=== PATIENT | male | born 1940 | race Caucasian/White ===

== ENCOUNTER → 2020-11-09 09:29 | Outpatient (CLI) | payer MEDICARE, MEDICAID, SELFPAY ==
--- NOTE | 2020-11-09 09:31 | CA_ITS ---
APPROVED REPORT Left Lower Extremity Venous Study for DVT. 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 Other deep veins of the left lower extremity are normal. Conclusion Study suggests DVT of the left femoral vein, popliteal vein and gastrocnemius vein of the left lower extremity. Other deep veins of the left lower extremity are normal. Critical Notification Physician Notified Date: 11/09/2020 Time: 10:07 Physician Name: Dr Jordan Electronically signed by : Elvis Vidal MD 11/09/2020 18:00:07
[2020-11-09 14:04] LABS: Blood Urea Nitrogen 10 mg/dl (9-20); Carbon Dioxide 30 mmol/L (22.0-30.0); Chloride 106 mmol/L (98-107); Estimated Glomerular Filt Rate 131 ml/min (>60); GFR (African American) 158 ML/MIN (>60); Glucose 95 mg/dl (74-100); Sodium 140 mmol/L (136-145)
== END ==
PROVIDERS: PCP Emergency Medicine; Visit Provider Emergency Medicine
DX: M79.89 Other specified soft tissue disorders (principal); I10 Essential (primary) hypertension; M79.662 Pain in left lower leg; Z87.891 Personal history of nicotine dependence
CPT/HCPCS: 80048; 93971

== ENCOUNTER → 2020-11-09 13:52 | Outpatient (CLI) | payer MEDICARE, MEDICAID, SELFPAY | PROVIDERS: Visit Provider Emergency Medicine | DX: I10 Essential (primary) hypertension (principal) | CPT/HCPCS: 80048 ==

== ENCOUNTER 2021-06-17 11:53 | Emergency (ER) | payer MEDICARE, MEDICAID, SELFPAY ==
[2021-06-17 12:00] VITALS: BP 129/76; PULSE 90; RESP 18; TEMP 36.8; O2SAT 98; BMI 22.8
--- NOTE | 2021-06-17 12:19 | HMH.EDUTC ---
[facility] [place] Disposition Clinical Impression: Acute bronchitis Qualifiers: Bronchitis organism: unspecified organism Qualified Code(s): J20.9 - Acute bronchitis, unspecified Sinusitis Qualifiers: Sinusitis location: unspecified location Chronicity: acute Recurrence: non-recurrent Qualified Code(s): J01.90 - Acute sinusitis, unspecified Disposition: Home, Self-Care Condition on Discharge: Good Instructions: DI for Sinusitis, DI for Acute Bronchitis Additional Instructions: Drink plenty of fluids. Take tylenol or ibuprofen for pain or fever. Take the medications as directed. Follow up with your regular doctor. GO TO THE ER FOR ANY WORSENING SYMPTOMS Don't start the oral steroids until tomorrow, since you had the shot here today. Prescriptions: Amoxicillin/Potassium Clav [Amox-Clav 875-125 mg Tablet] 1 tab PO BID #20 tab [facility] Benzonatate [Benzonatate 100mg cap] 100 mg PO TIDP PRN #30 cap PRN Reason: Cough Transmission Status: Received by [facility] methylPREDNISolone [Medrol] 4 mg PO DIRECTED 6 Days #21 packet Transmission Status: Received by [facility] guaiFENesin [Mucinex 600mg tablet] 1 - 2 tab PO BIDP PRN #30 tab PRN Reason: Congestion Transmission Status: Received by [facility] Referrals: Grupo Jordan MD [Primary Care Provider] - Time of Disposition: 13:12 Medical Decision Making - Medical Records Medical records reviewed: No: I reviewed the patient's medical records. - Jose Inquiry Pt receiving controlled substance: No Vital Signs: 06/17/21 12:00 06/17/21 12:49 Temperature 98.3 F 98.3 F Temperature Source Oral Pulse Rate 90 Pulse Rate [Right Brachial] 90 Respiratory Rate 18 18 Blood Pressure 129/76 Blood Pressure [Right Arm] 129/76 Blood Pressure Mean [Right Arm] 93 Blood Pressure Source [Right Arm] Automatic Cuff Blood Pressure Position [Right Arm] Sitting 02 Sat by Pulse Oximetry 98 Oxygen Delivery Method Room Air - Lab Data Lab results reviewed: Yes: I reviewed the patient's lab results. Orders (Tests/Meds): ED MEDICATIONS Discontinued Medications Generic Name Dose Route Start Last Admin Trade Name Freq PRN Reason Stop Dose Admin Ceftriaxone Sodium 1 gm 06/17/21 12:22 06/17/21 12:45 Ceftriaxone 1gm Vial IM 06/17/21 12:23 1 gm ONCE ONE Administration Lidocaine HCl 0 ml 06/17/21 12:22 06/17/21 12:45 Lidocaine 1% 5ml Pf Vial IM 06/17/21 12:23 2 ml ONCE ONE Administration Methylprednisolone Sodium Succinate 125 mg 06/17/21 12:22 06/17/21 12:45 Methylprednisolone Sod Succ 125mg Vial IM 06/17/21 12:23 125 mg ONCE ONE Administration [facility] [place] HPI - General Stated complaint: congestion, cough, runny nose Time Seen by Provider: 06/17/21 12:25 - History of Present Illness Provider Complaint: He states that he has had sinus congestion, sore throat, chills and feeling bad. - Related Data Previous Rx's Medication Instructions Recorded rivaroxaban 15 mg tablet 15 mg PO BID 21 Days #42 tab 11/09/20 lisinopril 20 mg tablet See Rx Instructions .ROUTE 02/07/21 .COMPLEX #90 tab rivaroxaban 20 mg tablet 20 mg PO DAILY #30 tab 02/07/21 Amoxicillin/Potassium Clav 1 tab PO BID #20 tab 06/17/21 [Amox-Clav 875-125 mg Tablet] Benzonatate [Benzonatate 100mg 100 mg PO TIDP PRN #30 cap 06/17/21 cap] guaiFENesin [Mucinex 600mg tablet] 1 - 2 tab PO BIDP PRN #30 tab 06/17/21 methylPREDNISolone [Medrol] 4 mg PO DIRECTED 6 Days #21 06/17/21 packet Allergies Allergy/AdvReac Type Severity Reaction Status Date / Time No Known Allergies Allergy Verified 11/23/20 09:44 [facility] History - Hepatitis A Screen Attestation statement:: This patient has been screened for Hepatitis A risk factors. I have reviewed the patient's past medical history: Yes Medical History: Reports:: Deep Vein Thrombosis, Hypertension Othe
[2021-06-17 12:49] VITALS: BP 129/76; PULSE 90; RESP 18; TEMP 36.8; O2SAT 98
== END 2021-06-17 13:15 | disposition home or self-care (01) ==
PROVIDERS: Emergency Provider Nurse Practitioner Family; PCP Emergency Medicine
DX: J20.9 Acute bronchitis, unspecified (principal); J01.90 Acute sinusitis, unspecified; I10 Essential (primary) hypertension; M19.90 Unspecified osteoarthritis, unspecified site; Z79.52 Long term (current) use of systemic steroids; Z86.718 Personal history of other venous thrombosis and embolism; Z96.641 Presence of right artificial hip joint; Z87.891 Personal history of nicotine dependence; Z82.49 Family history of ischemic heart disease and other diseases of the circulatory system; Z83.438 Family history of other disorder of lipoprotein metabolism and other lipidemia; Z80.9 Family history of malignant neoplasm, unspecified; Z83.3 Family history of diabetes mellitus
CPT/HCPCS: 96372; 99213; G0463; J0696

== ENCOUNTER 2023-08-11 17:07 | Emergency (ER) | payer MEDICARE, MEDICAID, SELFPAY ==
[2023-08-11 17:10] VITALS: BP 186/97; PULSE 85; RESP 18; TEMP 36.5; O2SAT 97; BMI 22.9
--- NOTE | 2023-08-11 17:24 | CT_ITS ---
PROCEDURE INFORMATION: Exam: CT Abdomen And Pelvis With Contrast Exam date and time: 08/11/2023 6:29 PM Age: 82 years old Clinical indication: Abdominal pain; Periumbilical; Additional info: Luq, periumbilical pain TECHNIQUE: Imaging protocol: Computed tomography of the abdomen and pelvis with contrast. Radiation optimization: All CT scans at this facility use at least one of these dose optimization techniques: automated exposure control; mA and/or kV adjustment per patient size (includes targeted exams where dose is matched to clinical indication); or iterative reconstruction. Contrast material: ISOVUE; Contrast volume: 75 ml; Contrast route: IV; COMPARISON: No relevant prior studies available. FINDINGS: Lungs: Scattered areas of bronchial wall thickening which are likely chronic inflammatory. A few areas of subpleural reticulation are noted, nonspecific. Liver: Normal. Gallbladder and biliary ducts: There is cholelithiasis within an otherwise normal gallbladder. Pancreas: There is some calcification associated with the pancreatic neck which could reflect chronic pancreatitis. Mild peripancreatic stranding is noted and correlation with lipase level for any concern of acute on chronic pancreatitis is suggested. Spleen: Normal. Adrenal glands: The adrenal glands appear normal. Kidneys and ureters: 4.5 cm fat containing exophytic mass emanating from the left most consistent with an angiomyolipoma (image 55 series 3). 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 Exophytic left mid to lower pole renal cysts appear simple. Nonobstructing left lower pole renal calculus. Stomach and bowel: There are scattered colonic diverticula without evidence for active diverticulitis. There are scattered colonic diverticula without evidence for active diverticulitis. Appendix: No evidence of appendicitis. Intraperitoneal space: Unremarkable. Vasculature: There is atherosclerotic disease of the visualized aorta and its major branch vessels. Lymph nodes: No lymphadenopathy. Urinary bladder: There is a calcification in the dependent urinary bladder which could reflect a recently passed stone. Reproductive: The prostate is enlarged. Bones/joints: There is diffuse degenerative disease of the visualized osseous structures. 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 Postsurgical changes of the right acetabulum. There is slight anterolisthesis of L5 on S1. There is a chronic compression deformity of L1. Soft tissues: There is a fat containing left inguinal hernia. IMPRESSION: 1. 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 2. There is a calcification in the dependent urinary bladder which could reflect a recently passed stone. 3. Mild peripancreatic stranding is noted and correlation with lipase level for any concern of acute on chronic pancreatitis is suggested. COMMENTS: Consistent with the [employer]'s Incidental Findings Committee white paper (J Am Rubén Radiol 2018): Any incidental renal lesion less than 1 cm or classified as too small to characterize, or any incidental cystic renal lesion characterized as simple-appearing, is likely benign. No follow-up imaging is recommended for these lesions per consensus recommendations based on imaging criteria.
--- NOTE | 2023-08-11 17:24 | ECG_ITS ---
APPROVED REPORT Exam: Resting ECG HR:84 bpm ECG Measurements Heart Rate 84 AXES WY 165 P 55 QRSd 80 QRS 52 QT 339 T 46 QTc 380 Conclusion SINUS RHYTHM NORMAL ECG Electronically signed by : JANETT SAM, 08/11/2023 23:19:17
--- NOTE | 2023-08-11 17:25 | ED_ITS ---
Discharge Plan Disposition Patient Disposition: Home, Self-Care Prescriptions Prescriptions: New ondansetron 4 mg tablet,disintegrating 4 mg PO Q8H PRN (Reason: nausea and vomiting) 4 Days Qty: 12 0RF No Action lisinopril 20 mg tablet See Rx Instructions .ROUTE .COMPLEX Qty: 90 2RF Dose Instruction: Take 1 tablet by mouth once daily Rx Instructions: Take 1 tablet by mouth once daily Referrals Follow up/Referrals: Prabhjot Young, [Primary Care Provider] - See instructions Activity Restrictions/Add. Instructions Additional Instructions/Restrictions: At this time it was felt you are safe to be discharged home. If new or worsening symptoms please do not hesitate to return the emergency department. As discussed today you have pancreatitis, please slowly advance your diet from clear liquids to broth to solids over the next few days and avoid heavily fatty foods. You also have a stone in your bladder which you already know about however I recommend you call and make an appointment with Dr. Silvestre as soon as you are able. Follow-up with your family doctor or Dr. Silvestre as soon as you are able for referral to appropriate doctor for continued workup of your left- sided kidney mass. You have been prescribed Zofran for nausea. Clinical Impressions Clinical Impression: Acute pancreatitis, Kidney mass, Bladder calculi Instructions Patient Instructions: DI for Acute Abdominal Pain Discharge ED Provider: Gilbert Silva General Adult HPI General Chief complaint: Abdominal Pain Stated complaint: Upper Abdominal pain,poor appetite Time Seen by Provider: 08/11/23 17:14 Mode of Arrival: Ambulatory Source of Information: Patient and Relative Limitations: No Limitations Description of Symptoms (Recalled from ER Triage Doc. by RN): abdominal pain History of Present Illness HPI narrative: Patient is a 82-year-old male with past medical history of hypertension, largely healthy otherwise, previous right inguinal hernia status post mesh who presents emergency department for evaluation of abdominal pain. Onset was acute, occurring since Sunday, periumbilical and left upper quadrant, described as twisting, is paroxysmal. Currently his pain is not so bad . However it has been severe and intermittent. Last bowel movement was small prior to arrival, still able to void. No chest pain. No other acute complaints at this time. Related Data Previous Rx's Medication Instructions Recorded lisinopril 20 mg tablet See Rx Instructions .Route 05/14/23 .COMPLEX #90 tabs ondansetron 4 mg disintegrating 4 mg PO Q8H PRN nausea and 08/11/23 tablet vomiting 4 days #12 tabs Allergies Allergy/AdvReac Type Severity Reaction Status Date / Time No Known Allergies Allergy Verified 05/31/22 14:08 [facility] Disclaimer: The information contained in this section may have been updated after the patient was seen, as this information can be updated by other users. Social History Smoking Status: Never smoker alcohol intake: never substance use type: denies use current occupational status: other Travel in the last 8 weeks: None household members: spouse housing: house ROS Obtained: Yes Systems reviewed as appropriate & no additional complaints except as documented Physical Exam General General appearance: alert and in no apparent distress Head Head exam: atraumatic and normocephalic Eye Eye exam: Present PERRL and EOMI ENT ENT exam: Present mucous membranes moist Neck Neck exam: Present normal inspection Chest Chest inspection: Present normal inspection and symmetric chest wall rise Respiratory Respiratory exam: Present normal lung sounds bilaterally; Absent respiratory distress Cardiovascular Cardiovascular exam: Present regular rate and normal rhythm Abdominal Exam Abdominal exam: Present soft, distention (Mild) and tenderness (Periumbilical, left upper quadrant); Absent guarding Extremities Exam Extremities exam: Present normal inspection Neurological Exam Neurological exam: Present alert Psychiatric Psychiatric exam: Present normal affect Skin Skin exam: Present warm and dry Medical Decision Making Jose Inquiry Pt receiving controlled substance: No Vital Signs: 08/11/23 17:10 08/11/23 17:30 08/11/23 17:45 Temperature 97.7 F Temperature Source Oral Pulse Rate 83 75 Pulse Rate [Right] 85 Respiratory Rate 18 Blood Pressure 179/84 H 169/88 H Blood Pressure [Right Arm] 186/97 H Blood Pressure Mean [Right Arm] 126 02 Sat by Pulse Oximetry 97 98 98 Oxygen Delivery Method Room Air 08/11/23 18:00 08/11/23 18:15 Temperature Temperature Source Pulse Rate 85 75 Pulse Rate [Right] Respiratory Rate Blood Pressure 172/88 H 180/82 H Blood Pressure [Right Arm] Blood Pressure Mean [Right Arm] 02 Sat by Pulse Oximetry 97 95 Oxygen Delivery Method Room Air Room Air Lab Data Lab Results 08/11/23 17:28: WBC 10.4, RBC 4.89, Hgb 15.3, Hct 47.0, MCV 96.3 H, MCH 31.3 H, MCHC 32.5, RDW 14.4, Plt Count 267, MPV 8.9, Neut % (Auto) 72.0, Lymph % (Auto) 16.5, Giles % (Auto) 5.5, Eos % (Auto) 4.9, Baso % (Auto) 1.2, Neut # (Auto) 7.5, Lymph # (Auto) 1.7, Giles # (Auto) 0.6, Eos # (Auto) 0.5 H, Baso # (Auto) 0.1, Sodium 139, Potassium 4.0, Chloride 105, Carbon Dioxide 29, Anion Gap 9.0, BUN 14, Creatinine 0.80, Estimated Creat Clear 66, Estimated GFR 93, Est GFR ( Amer) 113, Glucose 136 H, Calcium 9.3, Total Bilirubin 0.8, AST 31, ALT 24, Alkaline Phosphatase 146 H, Troponin I < 0.01, Total Protein 7.3, Albumin 3.9, Globulin 3.4 H, Albumin/Globulin Ratio 1.1, Lipase 1059 H, Urine Color Dark yellow, Urine Appearance Slightly cloudy, Urine pH 6.0, Ur Specific Crystal >= 1.030, Urine Protein Trace, Urine Glucose (UA) Trace, Urine Ketones Negative, Urine Blood Negative, Urine Nitrate Negative, Urine Bilirubin Negative, Urine Urobilinogen 1.0, Ur Leukocyte Esterase Negative, Urine RBC Occasional, Urine WBC 5-10, Urine Bacteria 1+ 08/11/23 17:28 08/11/23 17:28 Orders (Tests/Meds): ED MEDICATIONS Generic Name Dose Route Start Last Admin Trade Name Freq PRN Reason Stop Dose Admin Sodium Chloride 10 ml 08/11/23 18:28 08/11/23 18:29 Sodium Chloride 0.9% 10ml Syr (Rad Only) IV 09/10/23 18:27 10 ml NEEDED PRN Administration Maintain IV Site Discontinued Medications Generic Name Dose Route Start Last Admin Trade Name Freq PRN Reason Stop Dose Admin Acetaminophen 1,000 mg 08/11/23 17:24 08/11/23 17:42 Acetaminophen 1,000mg/100ml Vial IV 08/11/23 17:25 1,000 mg ONCE ONE Administration Lactated Ringer's 1,000 mls @ 999 mls/hr 08/11/23 17:24 08/11/23 17:42 Lactated Ringer's 1000 Ml Bag IV 08/11/23 18:24 999 mls/hr .Q1H1M ONE Administration Iopamidol 75 ml 08/11/23 18:28 08/11/23 18:29 Iopamidol-370 (76%);100ml Bottle IV 08/11/23 18:29 75 ml ONCE ONE Administration Ketorolac Tromethamine 30 mg 08/11/23 17:24 08/11/23 17:42 Ketorolac 30mg/Ml Vial IV 08/11/23 17:25 30 mg ONCE ONE Administration Ondansetron HCl 4 mg 08/11/23 17:24 08/11/23 17:42 Ondansetron 4mg/2ml Vial IV 08/11/23 17:25 4 mg ONCE ONE Administration ORDERS Category Date Time Status CT abdomen pelvis w con Stat Cat Scan 08/11/23 17:24 Completed CBC w/Auto Diff [Complete Blood Count Auto Diff] Stat Lab 08/11/23 17:28 Completed CMP [Comprehensive Metabolic Panel] Stat Lab 08/11/23 17:28 Completed Lipase Stat Lab 08/11/23 17:28 Completed Trop I [Troponin I] Stat Lab 08/11/23 17:28 Completed Troponin I Q3H Lab 08/11/23 20:30 Ordered Troponin I Q3H Lab 08/11/23 23:30 Ordered UA [Urinalysis and Microscopic] Stat Lab 08/11/23 17:28 Completed EKG Request [ECG Request] Stat Y 08/11/23 17:24 Ordered ECG Data Tracing #1: Independently interpreted by me rate is 84, rhythm is regular, axis is normal, no ST elevation in anatomical contiguous leads, QTc 380. HEART Score History (anamnesis): Slightly suspicious ECG: Normal Age: >65 years Risk factors: 1-2 risk factors Troponin: </= normal limit HEART Score: 3 Medical Decision Narrative: In summary patient is an 82-year-old male with past medical history described above who presents emergency department for evaluation of abdominal pain. Patient is hemodynamically stable nontoxic-appearing upon arrival, afebrile. Differential diagnosis includes incomplete bowel obstruction, mass, atypical ACS, among others. Workup will be conducted with hematologic labs, urinalysis, CT abdomen pelvis with IV contrast, single troponin, EKG. Initial interventions include crystalloid bolus, Toradol, Tylenol, Zofran. Initial workup reviewed by me, hematologic labs are remarkable for elevated lipase 1059, initial troponin undetectably low, no ERLINDA or critical electrolyte abnormality. Urinalysis interpreted by me not consistent with infection. CT imaging remarkable for 4.5 cm fat-containing exophytic mass from the left kidney consistent with angiomyolipoma, calcification in the urinary bladder which could reflect a recently passed stone, mild peripancreatic stranding which in this clinical setting is consistent with pancreatitis. Prolonged discussion was had at bedside, patient prefers to proceed with outpatient management although admission was recommended. Shared decision-making discussion was had, it is not unreasonable to do this given that he was tolerating p.o. at bedside, has no elevated AST or ALT, no elevated bilirubin to suggest suspect choledocholithiasis or gallstone pancreatitis. The findings in his bladder he states that he has had a stone there for some time and has been asymptomatic. He was encouraged to follow-up on an outpatient basis for this. He will also follow-up for his new mass on his left kidney and verbalized understanding. He was given multiple return precautions. Critical Care Critical Care Time Critical Care Time: No
[2023-08-11 17:30] VITALS: BP 179/84; PULSE 83; O2SAT 98
[2023-08-11 17:31] LABS: Microscopic, Urine URINE MICROSCOPIC (MICROSCOPIC)
[2023-08-11 17:33] LABS: Basophils # 0.1 K/mm3 (0-0.2); Basophils % 1.2 % (0.1-2.0); Bilirubin,Urine Negative (Negative); Blood, Urine Negative (Negative); Eosinophils # 0.5 K/mm3 (0.0-0.4); Eosinophils % 4.9 % (0.1-12.0); Glucose,Urine (UA) TRACE (Negative); Hemoglobin 15.3 g/dL (14.1-18.0); Ketones,Urine Negative (Negative); Leukocyte Esterase,Urine Negative (Negative); Lymphocytes # 1.7 K/mm3 (0.7-4.5); Lymphocytes % 16.5 % (10-50); Mean Corpuscular HGB Conc 32.5 g/dL (31.8-35.4); Mean Corpuscular Hemoglobin 31.3 pg (27.0-31.2); Mean Corpuscular Volume 96.3 fl (80-94); Mean Platelet Volume 8.9 fl (7.4-10.4); Monocytes # 0.6 K/mm3 (0.1-1.0); Monocytes % 5.5 % (1.7-9.3); Neutrophils # 7.5 K/mm3 (1.8-7.8); Nitrate,Urine Negative (Negative); Platelet Count 267 K/mm3 (142-424); Protein,Urine TRACE (Negative); Red Blood Count 4.89 M/mm3 (4.60-6.20); Red Cell Distribution Width 14.4 % (11.5-17.5); Specific Gravity, Urine >= 1.030 (1.005-1.030); White Blood Count 10.4 K/mm3 (4.8-10.8)
[2023-08-11] MEDS: ACETAMINOPHEN 1,000MG/100ML VIAL 1000 MG IV (17:42)
[2023-08-11] MEDS: ONDANSETRON 4MG/2ML VIAL 4 MG IV (17:42)
[2023-08-11] MEDS: KETOROLAC 30MG/ML VIAL 30 MG IV (17:42)
[2023-08-11] MEDS: LACTATED RINGERS 1000ML 1,000 ML 999 ML IV (17:42)
[2023-08-11 17:45] VITALS: BP 169/88; PULSE 75; O2SAT 98
[2023-08-11 17:47] LABS: Appearance,Urine Slightly Cloudy (Clear); Color,Urine Dark Yellow (Yellow); RBC,Urine Occasional #/hpf (0-3)
[2023-08-11 17:48] LABS: Bacteria,Urine 1+ /lpf; Chloride 105 mmol/L (98-107); Sodium 139 mmol/L (136-145)
[2023-08-11 17:50] LABS: Blood Urea Nitrogen 14 mg/dl (9-20)
[2023-08-11 17:51] LABS: Alanine Aminotransferase 24 U/L (12-78); Albumin Level 3.9 g/dl (3.5-5.0); Albumin/Globulin Ratio 1.1 (1.1-1.8); Alkaline Phosphatase 146 U/L (38-126); Aspartate Amino Transferase 31 U/L (17-59); Bilirubin,Total 0.8 mg/dl (0.2-1.3); Calcium 9.3 mg/dl (8.4-10.2); Carbon Dioxide 29 mmol/L (22.0-30.0); Creatinine Clearance Estimated 66 mL/min (50-200); Estimated Glomerular Filt Rate 93 ml/min (>60); GFR (African American) 113 ML/MIN (>60); Globulin 3.4 g/dL (1.3-3.2); Glucose 136 mg/dl (74-100); Total Protein,Serum 7.3 g/dl (6.3-8.2)
--- NOTE | 2023-08-11 17:55 | PC.NURSE ---
lipase 1059, aware
[2023-08-11 17:56] LABS: Lipase 1059 U/L (23-300)
[2023-08-11 18:00] VITALS: BP 172/88; PULSE 85; O2SAT 97
[2023-08-11 18:07] LABS: Troponin I < 0.01 ng/ml (0.00-0.034)
[2023-08-11 18:15] VITALS: BP 180/82; PULSE 75; O2SAT 95
[2023-08-11] MEDS: IOPAMIDOL-370 (76%);100ML BOTTLE 75 ML IV (18:29)
[2023-08-11] MEDS: SODIUM CHLORIDE 0.9% 10ML SYR (RAD ONLY) 10 ML IV (18:29)
--- NOTE | 2023-08-11 18:29 | PC.NURSE ---
pt is at ct
[2023-08-11 20:40] VITALS: BP 174/92; PULSE 94; RESP 16; TEMP 36.6; O2SAT 94
== END 2023-08-11 20:44 | disposition home or self-care (01) ==
PROVIDERS: Emergency Provider Emergency Medicine; PCP Internal Medicine
DX: R10.12 Left upper quadrant pain (principal); R10.33 Periumbilical pain; K85.90 Acute pancreatitis without necrosis or infection, unspecified; N21.0 Calculus in bladder; N28.89 Other specified disorders of kidney and ureter
CPT/HCPCS: 74177; 80053; 81001; 83690; 84484; 85025; 93005; 96361; 96374; 96375; 99285; J0131; J1885; J2405; J7120; Q9967

== ENCOUNTER 2023-08-12 19:40 | Emergency (ER) | payer MEDICARE, MEDICAID, SELFPAY ==
[2023-08-12 19:41] VITALS: BP 194/97; PULSE 97; RESP 18; TEMP 36.7; O2SAT 98; BMI 23.5
[2023-08-12] MEDS: ACETAMINOPHEN 1,000MG/100ML VIAL 1000 MG IV (20:37)
[2023-08-12] MEDS: MORPHINE 4MG/ML SYRINGE 4 MG IV (20:37)
[2023-08-12] MEDS: LACTATED RINGERS 1000ML 1,000 ML 999 ML IV (20:37)
[2023-08-12 20:42] LABS: Basophils # 0.1 K/mm3 (0-0.2); Basophils % 1.1 % (0.1-2.0); Eosinophils # 0.5 K/mm3 (0.0-0.4); Eosinophils % 5.5 % (0.1-12.0); Hematocrit 45.7 % (42.0-52.0); Hemoglobin 14.6 g/dL (14.1-18.0); Lymphocytes # 1.3 K/mm3 (0.7-4.5); Lymphocytes % 13.2 % (10-50); Mean Corpuscular Hemoglobin 30.9 pg (27.0-31.2); Mean Corpuscular Volume 96.7 fl (80-94); Mean Platelet Volume 8.9 fl (7.4-10.4); Monocytes # 0.6 K/mm3 (0.1-1.0); Monocytes % 5.7 % (1.7-9.3); Neutrophils # 7.3 K/mm3 (1.8-7.8); Neutrophils % 74.6 % (37.0-80.0); Platelet Count 219 K/mm3 (142-424); Red Blood Count 4.72 M/mm3 (4.60-6.20); Red Cell Distribution Width 14.3 % (11.5-17.5); White Blood Count 9.7 K/mm3 (4.8-10.8)
--- NOTE | 2023-08-12 20:47 | ED_ITS ---
Discharge Plan Disposition Patient Disposition: Xfer Short-Term Hosp Prescriptions Prescriptions: No Action lisinopril 20 mg tablet See Rx Instructions .ROUTE .COMPLEX Qty: 90 2RF Dose Instruction: Take 1 tablet by mouth once daily Rx Instructions: Take 1 tablet by mouth once daily ondansetron 4 mg tablet,disintegrating 4 mg PO Q8H PRN (Reason: nausea and vomiting) 4 Days Qty: 12 0RF Referrals Follow up/Referrals: Prabhjot Young DO [Primary Care Provider] - See instructions Clinical Impressions Clinical Impression: Acute pancreatitis, Lung mass, Kidney mass Instructions Patient Instructions: DI for Acute Abdominal Pain Discharge ED Provider: Gilbert Silva General Adult HPI <Gilbert Silva MD - Last Filed: 08/12/23 22:53> General Chief complaint: Abdominal Pain Stated complaint: abdominal pain Time Seen by Provider: 08/12/23 20:14 Mode of Arrival: Wheelchair Source of Information: Patient Limitations: No Limitations Description of Symptoms (Recalled from ER Triage Doc. by RN): Pt seen yesterday with abdominal pain, decreased appetite. Pt was dx with pancreatitis, denied admission. Tonight after dinner he had increased abdominal pain. LBM Sunday History of Present Illness HPI narrative: Patient is a 82-year-old male with past medical history of hypertension largely healthy otherwise who I saw yesterday in the emergency department for evaluation of upper abdominal pain. 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 Shared decision-making discussion was had at bedside and patient really preferred to go home and he was discharged at that time with multiple return precautions and verbalized understanding. Today he has had persistent epigastric pain which is not tolerable to him at home so he represents for continued evaluation. Workup yesterday reviewed by me, hematologic labs remarkable for lipase of 1059, no significant leukocytosis. CT imaging of the findings described above. No chest pain reported. Last bowel movement Sunday nonbloody, still passing flatus. Related Data Previous Rx's Medication Instructions Recorded lisinopril 20 mg tablet See Rx Instructions .Route 05/14/23 .COMPLEX #90 tabs ondansetron 4 mg disintegrating 4 mg PO Q8H PRN nausea and 08/11/23 tablet vomiting 4 days #12 tabs Allergies Allergy/AdvReac Type Severity Reaction Status Date / Time No Known Allergies Allergy Verified 05/31/22 14:08 PFSH <Gilbert Silva MD - Last Filed: 08/12/23 22:53> [facility] Disclaimer: The information contained in this section may have been updated after the patient was seen, as this information can be updated by other users. Social History Smoking Status: Never smoker alcohol intake: never substance use type: denies use current occupational status: other Travel in the last 8 weeks: None household members: spouse housing: house <Gilbert Silva MD - Last Filed: 08/12/23 22:53> ROS Obtained: Yes Systems reviewed as appropriate & no additional complaints except as documented Physical Exam <Gilbert Silva MD - Last Filed: 08/12/23 22:53> General General appearance: alert and in no apparent distress Head Head exam: atraumatic and normocephalic Eye Eye exam: Present PERRL ENT ENT exam: Present mucous membranes moist Neck Neck exam: Present normal inspection Chest Chest inspection: Present normal inspection and symmetric chest wall rise Respiratory Respiratory exam: Present normal lung sounds bilaterally; Absent respiratory distress Cardiovascular Cardiovascular exam: Present regular rate and normal rhythm Abdominal Exam Abdominal exam: Present soft and tenderness (Mild, epigastric) Extremities Exam Extremities exam: Present normal inspection Neurological Exam Neurological exam: Present alert Psychiatric Psychiatric exam: Present normal affect Skin Skin exam: Present warm and dry Medical Decision Making <Gilbert Silva MD - Last Filed: 08/12/23 22:53> Jose Inquiry Pt receiving controlled substance: No Vital Signs: 08/12/23 19:41 Temperature 98.1 F Temperature Source Oral Pulse Rate [Left] 97 H Respiratory Rate 18 Blood Pressure [Right Arm] 194/97 H Blood Pressure Mean [Right Arm] 129 Blood Pressure Source [Right Arm] Automatic Cuff Blood Pressure Position [Right Arm] Supine 02 Sat by Pulse Oximetry 98 Oxygen Delivery Method Room Air Lab Data Lab Results 08/12/23 20:30: WBC 9.7, RBC 4.72, Hgb 14.6, Hct 45.7, MCV 96.7 H, MCH 30.9, MCHC 32.0, RDW 14.3, Plt Count 219, MPV 8.9, Neut % (Auto) 74.6, Lymph % (Auto) 13.2, Barnes % (Auto) 5.7, Eos % (Auto) 5.5, Baso % (Auto) 1.1, Neut # (Auto) 7.3, Lymph # (Auto) 1.3, Barnes # (Auto) 0.6, Eos # (Auto) 0.5 H, Baso # (Auto) 0.1, S odium 135 L, Potassium 5.2 H D, Chloride 110 H, Carbon Dioxide 19 L, Anion Gap 11.2, BUN 11, Creatinine 0.70, Estimated Creat Clear 67, Estimated GFR 109, Est GFR ( Amer) 131, Glucose 109 H, Calcium 8.3 L, Total Bilirubin 1.5 H, AST 70 H D, ALT 25, Alkaline Phosphatase 171 H, Total Protein 7.0, Albumin 3.7, G lobulin 3.3 H, Albumin/Globulin Ratio 1.1, Lipase 1013 H 08/12/23 20:30 08/12/23 20:30 Orders (Tests/Meds): ED MEDICATIONS Generic Name Dose Route Start Last Admin Trade Name Freq PRN Reason Stop Dose Admin Sodium Chloride 10 ml 08/12/23 22:34 08/12/23 22:35 Sodium Chloride 0.9% 10ml Syr (Rad Only) IV 09/11/23 22:33 10 ml NEEDED PRN Administration Maintain IV Site Discontinued Medications Generic Name Dose Route Start Last Admin Trade Name Freq PRN Reason Stop Dose Admin Acetaminophen 1,000 mg 08/12/23 20:22 08/12/23 20:37 Acetaminophen 1,000mg/100ml Vial IV 08/12/23 20:23 1,000 mg ONCE ONE Administration Lactated Ringer's 1,000 mls @ 999 mls/hr 08/12/23 20:22 08/12/23 20:37 Lactated Ringer's 1000 Ml Bag IV 08/12/23 21:22 999 mls/hr .Q1H1M ONE Administration Iopamidol 75 ml 08/12/23 22:34 08/12/23 22:35 Iopamidol-370 (76%);100ml Bottle IV 08/12/23 22:35 75 ml ONCE ONE Administration Morphine Sulfate 4 mg 08/12/23 20:21 08/12/23 20:37 Morphine 4mg/Ml Syringe IV 08/12/23 20:22 4 mg ONCE ONE Administration ORDERS Category Date Time Status CT abdomen pelvis w con Stat Cat Scan 08/12/23 21:18 Completed CBC w/Auto Diff [Complete Blood Count Auto Diff] Stat Lab 08/12/23 20:30 Completed CMP [Comprehensive Metabolic Panel] Stat Lab 08/12/23 20:30 Completed Lipase Stat Lab 08/12/23 20:30 Completed Medical Decision Narrative: In summary patient is a 82-year-old male past medical history described above who presents emergency department for evaluation of persistent epigastric pain in the setting of pancreatitis, new exophytic left kidney mass. Patient is hemodynamically stable nontoxic-appearing upon arrival, afebrile. Given that he has no pancreatitis workup will be repeated with hematologic labs. No concern for ACS given no chest pain, the pain is exactly the same as it was yesterday and had an undetectable troponin yesterday. Initial interventions include morphine, Tylenol, Zofran, crystalloid bolus. Initial workup reviewed by me, hematologic labs patient has elevated AST compared to yesterday 70 up from 31, total bilirubin is 1.5, yesterday was 0.8. Lipase is roughly stable at 1013. Given uptrending hepatobiliary pattern CT imaging will be obtained to assess for possible choledocholithiasis as patient cannot be admitted at this institution if that is the leading differential diagnosis. CT conducted and formal read pending at time of transfer of care to the oncoming physician, Dr. Wells. <Ragini Wells MD - Last Filed: 08/12/23 23:51> Vital Signs: 08/12/23 19:41 Temperature 98.1 F Temperature Source Oral Pulse Rate [Left] 97 H Respiratory Rate 18 Blood Pressure [Right Arm] 194/97 H Blood Pressure Mean [Right Arm] 129 Blood Pressure Source [Right Arm] Automatic Cuff Blood Pressure Position [Right Arm] Supine 02 Sat by Pulse Oximetry 98 Oxygen Delivery Method Room Air Lab Data Lab Results 08/12/23 20:30: WBC 9.7, RBC 4.72, Hgb 14.6, Hct 45.7, MCV 96.7 H, MCH 30.9, MCHC 32.0, RDW 14.3, Plt Count 219, MPV 8.9, Neut % (Auto) 74.6, Lymph % (Auto) 13.2, Barnes % (Auto) 5.7, Eos % (Auto) 5.5, Baso % (Auto) 1.1, Neut # (Auto) 7.3, Lymph # (Auto) 1.3, Barnes # (Auto) 0.6, Eos # (Auto) 0.5 H, Baso # (Auto) 0.1, S odium 135 L, Potassium 5.2 H D, Chloride 110 H, Carbon Dioxide 19 L, Anion Gap 11.2, BUN 11, Creatinine 0.70, Estimated Creat Clear 67, Estimated GFR 109, Est GFR ( Amer) 131, Glucose 109 H, Calcium 8.3 L, Total Bilirubin 1.5 H, AST 70 H D, ALT 25, Alkaline Phosphatase 171 H, Total Protein 7.0, Albumin 3.7, G lobulin 3.3 H, Albumin/Globulin Ratio 1.1, Lipase 1013 H Orders (Tests/Meds): ED MEDICATIONS Generic Name Dose Route Start Last Admin Trade Name Freq PRN Reason Stop Dose Admin Sodium Chloride 10 ml 08/12/23 22:34 08/12/23 22:35 Sodium Chloride 0.9% 10ml Syr (Rad Only) IV 09/11/23 22:33 10 ml NEEDED PRN Administration Maintain IV Site Discontinued Medications Generic Name Dose Route Start Last Admin Trade Name Freq PRN Reason Stop Dose Admin Acetaminophen 1,000 mg 08/12/23 20:22 08/12/23 20:37 Acetaminophen 1,000mg/100ml Vial IV 08/12/23 20:23 1,000 mg ONCE ONE Administration Lactated Ringer's 1,000 mls @ 999 mls/hr 08/12/23 20:22 08/12/23 20:37 Lactated Ringer's 1000 Ml Bag IV 08/12/23 21:22 999 mls/hr .Q1H1M ONE Administration Iopamidol 75 ml 08/12/23 22:34 08/12/23 22:35 Iopamidol-370 (76%);100ml Bottle IV 08/12/23 22:35 75 ml ONCE ONE Administration Morphine Sulfate 4 mg 08/12/23 20:21 08/12/23 20:37 Morphine 4mg/Ml Syringe IV 08/12/23 20:22 4 mg ONCE ONE Administration ORDERS Category Date Time Status CT abdomen pelvis w con Stat Cat Scan 08/12/23 21:18 Completed CBC w/Auto Diff [Complete Blood Count Auto Diff] Stat Lab 08/12/23 20:30 Completed CMP [Comprehensive Metabolic Panel] Stat Lab 08/12/23 20:30 Completed Lipase Stat Lab 08/12/23 20:30 Completed Medical Decision Narrative: In summary patient is a 82-year-old male past medical history described above who presents emergency department for evaluation of persistent epigastric pain in the setting of pancreatitis, new exophytic left kidney mass. Patient is hemodynamically stable nontoxic-appearing upon arrival, afebrile. Given that he has no pancreatitis workup will be repeated with hematologic labs. No concern for ACS given no chest pain, the pain is exactly the same as it was yesterday and had an undetectable troponin yesterday. Initial interventions include morphine, Tylenol, Zofran, crystalloid bolus. Initial workup reviewed by me, hematologic labs patient has elevated AST compared to yesterday 70 up from 31, total bilirubin is 1.5, yesterday was 0.8. Lipase is roughly stable at 1013. Given uptrending hepatobiliary pattern CT imaging will be obtained to assess for possible choledocholithiasis as patient cannot be admitted at this institution if that is the leading differential diagnosis. CT conducted and formal read pending at time of transfer of care to the oncoming physician, Dr. Wells. Russell: Upon my assumption of care patient is stable. I have reviewed the labs performed by Dr. Silva and agree with his assessment and plan so far. CT imaging was pending at the time of my assumption of care. I personally interpreted CT imaging and do not appreciate obvious biliary dilation. Radiology called and we had an interactive discussion regarding CT findings which do not demonstrate any findings of biliary dilation, however part of the chest was imaged when patient received his CT abdomen/pelvis and it is notable for spiculated left lung mass with mediastinal involvement as well as kidney mass which was also visualized on CT imaging yesterday. Unfortunately these additional findings in the chest are concerning for malignancy with metastasis. Patient and family are made aware of these findings. I discussed with them my recommendation for transfer to higher level of care for continued workup of increasing liver enzymes as well as newly identified malignancy. Patient and family are in agreement with this plan. I had interactive discussion with transfer center and Dr. Weller has accepted the patient for transfer for concerns of possible developing choledocholithiasis with increasing LFTs, increasing bilirubin, and newly identified masses concerning for malignancy. He will go to [facility] ER. Patient is appropriate for transfer via ALS so he can continue receiving IV fluids, pain medication. He was transferred in stable condition. Critical Care <Gilbert Silva MD - Last Filed: 08/12/23 22:53> Critical Care Time Critical Care Time: No
[2023-08-12 20:54] LABS: Chloride 110 mmol/L (98-107); Sodium 135 mmol/L (136-145)
[2023-08-12 20:57] LABS: Alanine Aminotransferase 25 U/L (12-78); Albumin Level 3.7 g/dl (3.5-5.0); Albumin/Globulin Ratio 1.1 (1.1-1.8); Alkaline Phosphatase 171 U/L (38-126); Anion Gap 11.2 mEq/L (5-15); Aspartate Amino Transferase 70 U/L (17-59); Bilirubin,Total 1.5 mg/dl (0.2-1.3); Blood Urea Nitrogen 11 mg/dl (9-20); Calcium 8.3 mg/dl (8.4-10.2); Carbon Dioxide 19 mmol/L (22.0-30.0); Creatinine Clearance Estimated 67 mL/min (50-200); Estimated Glomerular Filt Rate 109 ml/min (>60); GFR (African American) 131 ML/MIN (>60); Globulin 3.3 g/dL (1.3-3.2); Glucose 109 mg/dl (74-100)
[2023-08-12 21:13] LABS: Lipase 1013 U/L (23-300)
--- NOTE | 2023-08-12 21:18 | CT_ITS ---
PROCEDURE INFORMATION: Exam: CT Abdomen And Pelvis With Contrast Exam date and time: 08/12/2023 10:12 PM Age: 82 years old Clinical indication: Condition or disease; Other: Pancreatitis; Additional info: Pancreatitis, uptrending bili, eval for choledoco TECHNIQUE: Imaging protocol: Computed tomography of the abdomen and pelvis with contrast. Total images: 346 Radiation optimization: All CT scans at this facility use at least one of these dose optimization techniques: automated exposure control; mA and/or kV adjustment per patient size (includes targeted exams where dose is matched to clinical indication); or iterative reconstruction. Contrast material: ISOVUE; Contrast volume: 75 ml; Contrast route: IV; COMPARISON: CT ABDOMEN PELVIS W CON 08/11/2023 6:29 PM FINDINGS: Lungs: Approximate 4 cm spiculated left upper lobe pulmonary mass with adjacent satellite nodularity, in keeping with primary lung malignancy. Adjacent parenchymal distortion and tethering of the adjacent pleura. Minor bibasilar dependent atelectasis. Right middle lobe and lingular scarring. Heart: Normal heart size. Coronary arteries: Moderate coronary artery calcifications. Diaphragm: Tiny hiatal hernia. Liver: Normal. No mass. Gallbladder and biliary ducts: Cholelithiasis without secondary signs of acute cholecystitis. No biliary ductal dilatation. Pancreas: Punctate calcification in the pancreatic neck. Mild peripancreatic edema compatible with acute interstitial edematous pancreatitis. No pancreatic necrosis or fluid collections. Spleen: Calcified splenic granuloma. No splenomegaly. Adrenal glands: Normal. No mass. Kidneys and ureters: 15 mm upper pole right renal cortical lesion with intrinsic fat compatible with angiomyolipoma. Additional subcentimeter fat containing right renal cortical lesion. 4.5 cm exophytic fat containing left renal cortical mass compatible with angiomyolipoma. Exophytic lower pole left renal cortical cyst. Small bilateral peripelvic renal cysts. Left nephrolithiasis. Duplicated left kidney and proximal ureters. No hydronephrosis. No distal ureteral stones. Stomach and bowel: Unremarkable stomach. Unremarkable duodenum and small bowel. No ileus or bowel obstruction. Severe colonic diverticulosis. No acute diverticulitis. Unremarkable rectum. Appendix: Normal appendix. Intraperitoneal space: Unremarkable. No free air. No significant fluid collection. Vasculature: Atherosclerotic abdominal aorta without aneurysm. Major abdominal vessels enhance appropriately. Lymph nodes: Enlarged morphologically abnormal anterior mediastinal/prevascular lymph nodes compatible with metastases. Urinary bladder: Unremarkable as visualized. Reproductive: Severe prostatomegaly at 6.6 cm. Masslike filling defect posterior bladder base likely reflects hematoma, neoplasm, or enlarged prostate gland. Associated calcification. Bones/joints: Moderate degenerative changes thoracolumbar spine. Remote severe compression deformity L1 vertebral body with component of retropulsion, unchanged. Grade 1 anterior spondylolisthesis L5-S1. Mild anterior wedging of midthoracic vertebral bodies, unchanged. Remote fracture deformity and ORIF right acetabulum. Remote fracture right superior and inferior pubic rami. Soft tissues: Fat containing bilateral inguinal hernias. IMPRESSION: 1. 4 cm spiculated left upper lobe pulmonary mass in keeping with primary lung neoplasm. 2. Metastatic anterior mediastinal lymphadenopathy. 3. Acute mild interstitial edematous pancreatitis. No pancreatic necrosis or fluid collections. 4. Cholelithiasis. 5. No biliary ductal dilatation. 6. Bilateral renal angiomyolipomas. 7. Severe colonic diverticulosis. 8. Severe prostatomegaly. 9. Filling defect posterior bladder base with differential: Bladder mass, enlarged prostate, hematoma. Recommend direct visualization. 10. Left nephrolithiasis without obstructive uropathy. 11. Additional chronic and incidental findings. COMMENTS: Consistent with the [employer]'s Incidental Findings Committee white paper (J Am Rubén Radiol 2018): Any incidental renal lesion less than 1 cm or classified as too small to characterize, or any incidental cystic renal lesion characterized as simple-appearing, is likely benign. No follow-up imaging is recommended for these lesions per consensus recommendations based on imaging criteria.
[2023-08-12 21:21] LABS: Potassium 5.2 mmoL/L (3.5-5.1)
[2023-08-12 21:30] VITALS: BP 157/89; PULSE 82; RESP 18; O2SAT 94
[2023-08-12 22:00] VITALS: BP 156/90; PULSE 90; RESP 16; O2SAT 94
[2023-08-12] MEDS: IOPAMIDOL-370 (76%);100ML BOTTLE 75 ML IV (22:35)
[2023-08-12] MEDS: SODIUM CHLORIDE 0.9% 10ML SYR (RAD ONLY) 10 ML IV (22:35)
[2023-08-12 23:00] VITALS: BP 160/89; PULSE 90; RESP 16; O2SAT 94
[2023-08-13] VITALS: BP 161/82; PULSE 91; RESP 16; TEMP 36.7; O2SAT 96
--- NOTE | 2023-08-13 00:24 | PC.NURSE ---
Report called to [facility]ST to Yasmeen Montague RN
[2023-08-13 00:54] VITALS: BP 182/93; PULSE 92; RESP 17; TEMP 37; O2SAT 97
== END 2023-08-13 00:57 | disposition short-term general hospital (02) ==
PROVIDERS: Emergency Provider Emergency Medicine; PCP Internal Medicine
DX: K85.90 Acute pancreatitis without necrosis or infection, unspecified (principal); R10.13 Epigastric pain; R94.5 Abnormal results of liver function studies; E80.7 Disorder of bilirubin metabolism, unspecified; E87.5 Hyperkalemia; R91.8 Other nonspecific abnormal finding of lung field; N28.89 Other specified disorders of kidney and ureter
CPT/HCPCS: 74177; 80053; 83690; 85025; 96361; 96374; 96375; 99285; J0131; J2270; J7120; Q9967

== ENCOUNTER 2023-11-12 20:48 | Outpatient (CLI) | payer MEDICARE, MEDICAID, SELFPAY ==
[2023-11-12 21:37] LABS: Alanine Aminotransferase 115 U/L (12-78); Albumin Level 3.9 g/dl (3.5-5.0); Albumin/Globulin Ratio 1.6 (1.1-1.8); Alkaline Phosphatase 119 U/L (38-126); Anion Gap 11.5 mEq/L (5-15); Aspartate Amino Transferase 88 U/L (17-59); Blood Urea Nitrogen 14 mg/dl (9-20); Calcium 8.8 mg/dl (8.4-10.2); Carbon Dioxide 25 mmol/L (22.0-30.0); Chloride 108 mmol/L (98-107); Chol/HDL Ratio 4.9 (1-3.5); Cholesterol 156 mg/dl (140-200); Estimated Glomerular Filt Rate 109 ml/min (>60); GFR (African American) 131 ML/MIN (>60); Globulin 2.5 g/dL (1.3-3.2); Glucose 95 mg/dl (74-100); HDL Cholesterol 32 mg/dl (40-60); Potassium 3.5 mmoL/L (3.5-5.1); Sodium 141 mmol/L (136-145); Total Protein,Serum 6.4 g/dl (6.3-8.2); Triglycerides 101 mg/dl (30-150); VLDL Cholesterol 20 mg/dL (0-40)
[2023-11-12 21:48] LABS: Direct LDL Cholesterol 101.93 mg/dL (100-129)
[2023-11-12 22:09] LABS: Prostate Specific Ag Screen 2.5 ng/ml (0.0-4.0)
== END 2023-11-12 23:59 | disposition home or self-care (01) ==
LOC: LAB.DROPOF 20:50
PROVIDERS: PCP Family Medicine; Visit Provider Family Medicine
DX: M79.9 Soft tissue disorder, unspecified (principal); Z12.5 Encounter for screening for malignant neoplasm of prostate; I10 Essential (primary) hypertension; R73.03 Prediabetes
CPT/HCPCS: 80053; 80061; G0103

== ENCOUNTER 2023-11-22 11:02 | Outpatient (CLI) | payer MEDICARE, MEDICAID, SELFPAY ==
--- NOTE | 2023-11-22 11:15 | XR_ITS ---
FINAL REPORT CLINICAL HISTORY: prior trauma/ skin lesion COMPARISON: None FINDINGS: LEFT TIBIA/FIBULA 2 views were obtained. There is a side plates and screws securing a healing comminuted fracture of the proximal tibia. There is moderate narrowing of the medial and lateral compartment joint spaces. There is no soft tissue abnormality. 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 Postoperative changes as above Reviewed, Interpreted and Dictated by Migel Reynoso MD Transcribed by Brea Gonzalez Authenticated and [facility]
== END 2023-11-22 23:59 | disposition home or self-care (01) ==
LOC: RAD 11:05
PROVIDERS: Visit Provider Surgery
DX: M79.9 Soft tissue disorder, unspecified (principal)
CPT/HCPCS: 73590

== ENCOUNTER 2023-12-03 11:11 | Outpatient (CLI) | payer MEDICARE, MEDICAID, SELFPAY ==
[2023-12-03 11:49] VITALS: BMI 22.2
[2023-12-03 12:05] LABS: Basophils # 0.1 K/mm3 (0-0.2); Basophils % 1.1 % (0.1-2.0); Eosinophils # 0.3 K/mm3 (0.0-0.4); Eosinophils % 3.7 % (0.1-12.0); Hematocrit 45.4 % (42.0-52.0); Hemoglobin 14.9 g/dL (14.1-18.0); Lymphocytes # 2.2 K/mm3 (0.7-4.5); Lymphocytes % 31.1 % (10-50); Mean Corpuscular HGB Conc 32.9 g/dL (31.8-35.4); Mean Corpuscular Hemoglobin 30.2 pg (27.0-31.2); Mean Platelet Volume 9.7 fl (7.4-10.4); Monocytes # 0.4 K/mm3 (0.1-1.0); Monocytes % 5.7 % (1.7-9.3); Neutrophils # 4.2 K/mm3 (1.8-7.8); Neutrophils % 58.5 % (37.0-80.0); Platelet Count 166 K/mm3 (142-424); Red Blood Count 4.94 M/mm3 (4.60-6.20); Red Cell Distribution Width 14.7 % (11.5-17.5); White Blood Count 7.1 K/mm3 (4.8-10.8)
[2023-12-03 12:19] LABS: Chloride 106 mmol/L (98-107); Potassium 3.9 mmoL/L (3.5-5.1); Sodium 140 mmol/L (136-145)
[2023-12-03 12:22] LABS: Blood Urea Nitrogen 12 mg/dl (9-20); Creatinine Clearance Estimated 61 mL/min (50-200); Estimated Glomerular Filt Rate 93 ml/min (>60); GFR (African American) 112 ML/MIN (>60)
[2023-12-03 12:23] LABS: Anion Gap 9.9 mEq/L (5-15); Calcium 8.1 mg/dl (8.4-10.2); Carbon Dioxide 28 mmol/L (22.0-30.0); Glucose 103 mg/dl (74-100)
== END 2023-12-03 23:59 | disposition home or self-care (01) ==
LOC: PREOP 11:14
PROVIDERS: PCP Nurse Practitioner; Visit Provider Surgery
DX: M79.9 Soft tissue disorder, unspecified (principal)
CPT/HCPCS: 80048; 85025

== ENCOUNTER 2023-12-10 10:11 | Day surgery (SDC) | payer MEDICARE, MEDICAID, SELFPAY ==
[2023-12-03 11:47] VITALS: BMI 22.2
[2023-12-10 12:05] VITALS: BP 160/94; PULSE 72; RESP 18; TEMP 36.6; O2SAT 98
[2023-12-10] MEDS: LACTATED RINGERS 1000ML 1,000 ML 25 ML IV (12:13)
[2023-12-10] MEDS: CEFAZOLIN SODIUM 1 GM in 0.9 % SODIUM CHLORIDE 50 ML IV (13:15)
--- NOTE | 2023-12-10 13:22 | EXP.ANES.CKL ---
[facility] Disclaimer: The information contained in this section may have been updated after the patient was seen, as this information can be updated by other users. Medical History HTN (hypertension) Skin tear of left forearm without complication Surgical History History of surgery on lower extremity History of cholecystectomy History of hernia repair Family History Other Family history of cancer Family history of diabetes mellitus Family history of heart disease Social History (Updated 12/10/23 @ 12:02 by Randa Fortune RN) Smoking Status: Never smoker alcohol intake: never substance use type: denies use current occupational status: retired and other Travel in the last 8 weeks: None household members: spouse housing: house [facility] Anesthesia Checklist Patient Identification Patient Identification: Verbal (Name & ) Structural Data Admitted From: Home Planned Operative Procedure/s: excision neoplasm lle Consent for Planned Operative Procedure(s) Verified: Yes NPO Status Verified Time NPO: 00:00 Additional verifications Anesthesia Reactions: No Hx Blood Transfusions: No Blood Transfusion Reaction: No Airway Assessment Mallampati Score:: Class II C-Spine Mobility Assessed: Yes TMJ Mobility Assessed: Yes Dentition: Edentulous Neurological Assessment Level of Consciousness: Awake, Alert and Appropriate Anesthesia Plan Anesthesia Risk discussed: Yes Anesthesia Plan: Verified ASA Class: II Anesthesia Type: MAC
[2023-12-10] MEDS: ROPIVACAINE 0.5% 30ML VIAL 150 MG (13:34)
[2023-12-10] MEDS: LIDOCAINE 1% 20ML MDV 20 ML (13:34)
[2023-12-10 13:42] VITALS: BP 150/73; PULSE 66; RESP 18; TEMP 36.3; O2SAT 99
--- NOTE | 2023-12-10 13:45 | P.OP_ITS ---
Date of procedure: 12/10/23 Pre-op Diagnosis:: Suspicious skin lesion left lower extremity Post-op Diagnosis:: Same Procedure performed:: Excision of suspicious skin lesion left lower extremity (excisional length/diameter 3 cm) Surgeon:: Gino Limon MD POUNCING LATHE OPERATOR:: Yaw Ivey Anesthesia: MAC and local Estimated blood loss (mL): 3 Operative findings:: Suspicious somewhat necrotic fungating lesion Operative note:: Consent was obtained patient was taken the operating room. He was positioned in a supine position. Adequate intravenous sedation was achieved. The area was prepped and draped in the standard surgical fashion. Boundaries of the lesion were marked with a skin marker for planned grossly negative margins approximately 4 to 5 mm. There was somewhat necrotic central portion to the skin lesion. Local anesthetic was infiltrated superficially and then deep to the lesion. Full-thickness skin incision was made circumferentially. Dissection was carried down through the dermis to the subcutaneous tissues. Skin was excised from the underlying subcutaneous tissues using electrocautery. Lesion was marked with a skin marker with a short suture superiorly and a long suture laterally for orientation. It was sent off as specimen labeled lower extremity skin lesion. Wound was irrigated. Hemostasis was achieved with electrocautery. Wound diameter measured 3 cm. Given the possibility of need for future excision and inability to close this primarily with only possibility for closure at this time with either skin graft or flap plan was made to leave it open and allow healing by secondary intention. The wound was packed with a saline moistened gauze and covered with clean dry sterile dressing. Condition: stable Disposition: PACU Complications:: None immediately apparent
[2023-12-10 13:52] VITALS: BP 159/79; PULSE 67; RESP 18; O2SAT 98
[2023-12-10 14:02] VITALS: BP 147/75; PULSE 65; RESP 18; O2SAT 98
[2023-12-10 14:12] VITALS: BP 162/75; PULSE 66; RESP 18; O2SAT 98
== END 2023-12-10 14:12 | disposition home or self-care (01) ==
PROVIDERS: PCP Nurse Practitioner; Visit Provider Surgery
PROC: (CPT 11603; principal; 2023-12-10 12:00)
DX: C44.729 Squamous cell carcinoma of skin of left lower limb, including hip (principal)
CPT/HCPCS: 11603; 88305; J7120

== ENCOUNTER 2024-09-24 12:26 | Outpatient (CLI) | payer MEDICARE, MEDICAID, SELFPAY ==
--- NOTE | 2024-09-24 12:29 | XR_ITS ---
FINAL REPORT CLINICAL HISTORY: L Shoulder pain [id number]. NO SURGERY COMPARISON: None FINDINGS: LEFT SHOULDER 3 views of the left shoulder were obtained. There is no acute fracture or dislocation. There are moderate hypertrophic changes of the glenohumeral joint. The acromioclavicular joint is intact. There is ossification inferior margin of the glenohumeral joint. There is a large mass in the left lung measuring 10.5 x 9.5 cm with a moderate pleural effusion. IMPRESSION: Degenerative change of the left shoulder without acute bony abnormality. Large mass left lung. Recommend infused thoracic CT scan to better evaluate. Reviewed, Interpreted and Dictated by Migel Reynoso MD Transcribed by Renee Potter Authenticated and [facility]
--- OUTSIDE RECORDS SUMMARY | 2024-09-24 12:30 | XMS_ITS | Clinical Summary ---
Author Organization [facility] Address [address] [place] [address] Care Team Providers Care Humanities Division Chair Name Role Phone Grupo Jordan MD Primary Care Provider + [phone] Allergies No known active allergies Medications lisinopril 20 MG tablet Take by mouth 1 (one) time each day. 1 Active ondansetron ODT (Zofran-ODT) 4 MG disintegrating tablet Take 1 tablet (4 mg) by mouth every 8 (eight) hours if needed for nausea or vomiting. Active cetirizine (ZyrTEC) 10 MG tablet Take 1 tablet (10 mg) by mouth 1 (one) time each day. Active potassium chloride CR (Klor-Con) 10 MEQ ER tablet Take 1 tablet (10 mEq) by mouth 1 (one) time each day. Do not crush, chew, or split. Active acetaminophen (Tylenol) 325 MG tablet Take 2 tablets (650 mg) by mouth every 8 (eight) hours. 100 tablet 4 Active methocarbamol (Robaxin) 500 MG tablet Take 1 tablet (500 mg) by mouth 4 (four) times a day for 7 days. 28 tablet 4 Active naloxone (Narcan) 4 mg/0.1 mL nasal spray 1. Give 1 spray in nostril for no/slow breathing or cannot wake after opioid use 2. Call 911 3. Repeat in other nostril if symptoms continue 1 each Active Active Problems Problem Noted Date Diagnosed Date HTN (hypertension) 08/16/2023 Acetabular fracture 06/14/2020 Knee pain 06/14/2020 Compression fx, lumbar spine 04/29/2020 Resolved Problems Problem Noted Date Diagnosed Date Resolved Date Gallstone pancreatitis 08/13/202308/14 Family History Medical History Relation Name Comments Diabetes Other Relation Name Status Comments Other Social History Tobacco Use Types Packs/Day Years Used Date Smoking Tobacco: Former Smokeless Tobacco: Former Alcohol Use Standard Drinks/Week Comments Never 0 (1 standard drink = 0.6 oz pur e alcohol) Humiliation, Afraid, Rape, and Kick questionnair e Answer Date Recorded Within the last year, have y ou been afraid of your partner or ex-partner? No 08/13/2023 Within the last year, have y ou been humiliated or emotionally abused in other ways by your partner or ex-partner? No Within the last year, have y ou been kicked, hit, slapped, or otherwise physically hurt by your partner or ex-partner? No 08/13/2023 Within the last year, have y ou been raped or forced to have any kind of sexual activity by your partner or ex-partner? No 08/13/2023 Hunger Vital Sign Answer Date Recorded Within the past 12 months, y ou worried that your food would run out before you got the money to buy more. Never true 08/13/19 24 Within the past 12 months, t he food you bought just didn't last and you didn't have money to get more. Never true 08/13/2023 PRAPARE - Transportation Answer Date Re corded In the past 12 months, has l ack of transportation kept you from medical appointments or from getting medications? No 09/2023 In the past 12 months, has l ack of transportation kept you from meetings, work, or from getting things needed for daily living? No 08/13/2023 Housing Stability Vital Sign Answer Cholo e Recorded In the last 12 months, was t here a time when you were not able to pay the mortgage or rent on time? No 08/13/2023 [address] of [address] Lived in the Last Year Not on f ile 08/13/2023 In the last 12 months, was t here a time when you did not have a steady place to sleep or slept in a skilled nursing (including now)? No 08/13/2023 CAGE ASSESSMENT Answer Date Recorded Cage unable to access Not on file 08/13/2023 Cage max number of drinks Not on file 2023 Cage Beverages a week Not on file 08/13/2023 Have you ever felt you should CUT down on your d rinking? 0 08/13/2023 Have you been ANNOYED by people criticizing your drinking? 0 08/13/2023 Have you felt GUILTY about your drinking? 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 0 08/13/2023 CAGE Questionnaire Score 0 024 Utilities Answer Date Recorded In the past 12 months has th [employer], gas, oil, or water company threatened to shut off services in your home? No 08/13/2023 Sex and Gender Information Value Date Recorded Sex Assigned at Not on file Legal Sex Male 8:11 PM EDT Gender Identity Not on file Sexual Orientation Straight 08/13/2023 11 :01 PM EDT Last Filed Vital Signs Vital Sign Reading Time Taken Comments Blood Pressure 164/79 08/17/2023 11:31 AM EDT Pulse 107 08/17/2023 11:31 AM EDT Temperature 36.8 C (98.2 F) 08/17/2023 11:31 AM EDT Respiratory Rate 16 08/17/2023 11:31 AM EDT Oxygen Saturation 92% 08/17/2023 11:31 AM EDT Inhaled Oxygen Concentration - - Weight 76.7 kg (169 lb) 08/14/2023 5:06 AM EDT Height 185.4 cm (6' 0.99 ) 08/14/2023 5:06 AM ED T Body Mass Index 22.3 08/14/2023 5:06 AM EDT Plan of Treatment Health Maintenance Due Date Last Done Comments [facility]-Depression Screening 1942 [facility]-Medicare Annual Wellness (AWV) 1942 [facility]-/Child/Adol SDOH Screenings 1942 [facility]- SDOH Screenings 1960 [facility]-Adult SDOH Screenings 1960 [facility]-DTaP,Tdap,and Td Vaccine s (1 - Tdap) 1961 [facility]-Pneumococcal Vaccine: 50 + Years (1 of 1 - PCV) 1992 [facility]-Zoster Vaccines (1 of 2) 1992 [facility]-RSV Vaccine: 60+ Years o r (1 - 1-dose 75+ series) 2017 [id number] Vaccine ( - 20 24-25 season) 2023 [facility]-Influenza Vaccine (#1) 2024 HPV Vaccines Aged Out No longer eligi ble based on patient's age to complete this topic [facility]-HIB Vaccines Aged Out No longer e ligible based on patient's age to complete this topic [facility]-Hepatitis A Vaccines Aged Out No longer eligible based on patient's age to complete this topic [facility]-IPV Vaccines Aged Out No longer e ligible based on patient's age to complete this topic [facility]-Rotavirus Vaccines Aged Out No lo nger eligible based on patient's age to complete this topic Insurance [address] [place] [address] [employer] [place] Advance Directives * Full Code (Latest Code Status on File) Date Activated Date Inactivated Comments 08/13/2023 5:47 AM 08/17/2023 5:07 PM Question Answer Comments Patient has decision-making capacity? Yes Care Teams Humanities Division Chair Relationship Specialty Start Date End Date Grupo Jordan MD [address] [place] [address] PCP - General 06/18/20
== END 2024-09-24 23:59 | disposition home or self-care (01) ==
LOC: RAD 12:28
PROVIDERS: PCP Nurse Practitioner Family; Visit Provider Nurse Practitioner Family
DX: M19.012 Primary osteoarthritis, left shoulder (principal); R91.8 Other nonspecific abnormal finding of lung field
CPT/HCPCS: 73030

== ENCOUNTER 2024-09-27 12:05 | Emergency (ER) | payer MEDICARE, MEDICAID, SELFPAY ==
[2024-09-27] VITALS (12 sets, daily range): BP systolic 153–185; BP diastolic 81–99; PULSE 103–120; RESP 16–22; TEMP 36.9–37.2; O2SAT 92–95; BMI 24.4
--- NOTE | 2024-09-27 12:13 | ECG_ITS ---
APPROVED REPORT Exam: Resting ECG HR:119 bpm ECG Measurements Heart Rate 119 AXES AK 145 P 57 QRSd 80 QRS 44 QT 340 T 90 QTc 410 Conclusion SINUS TACHYCARDIA NONSPECIFIC ST & T-WAVE ABNORMALITY ABNORMAL RHYTHM ECG UNCONFIRMED REPORT Sinus tachycardia. No ST elevation or depression. QTc 410 Electronically signed by : NIRU LARA, 09/27/2024 17:46:25
--- OUTSIDE RECORDS SUMMARY | 2024-09-27 12:36 | XMS_ITS | Clinical Summary ---
Author Organization [facility] Address [address] 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 0 08/13/2023 CAGE Questionnaire Score 0 024 Utilities Answer Date Recorded In the past 12 months has th [employer], gas, oil, or water company threatened to [...] r (1 - 1-dose 75+ series) 2017 [id number] Vaccine ( - 20 24-25 season) 2023 [...] to complete this topic Insurance [address] [place] [address] [employer] [place] Advance Directives * Full Code (Latest Code Status on File) Date Activated Date Inactivated Comments 08/13/2023 5:47 AM 08/17/2023 5:07 PM Question Answer Comments Patient has decision-making capacity? Yes Care Teams Repair Armature Winder Helper Relationship Specialty Start Date End Date Grupo Jordan MD [address] [place] [address] PCP - General 06/18/20
--- NOTE | 2024-09-27 12:38 | ED_ITS ---
<Statement entered by August Garcia MD - 09/27/24 17:39> I was consulted by the PHILIPP, and we discussed the complexity of the problems being addressed. I approve the treatment and management plan for this patient's care in the emergency department, thus performing a substantive portion of the medical decision making. August Garcia MD Discharge Plan Disposition Patient Disposition: Home, Self-Care Prescriptions Prescriptions: New cefdinir 300 mg capsule 300 mg PO BID 10 Days Qty: 20 0RF doxycycline hyclate 100 mg capsule 100 mg PO BID 10 Days Qty: 20 0RF Eliquis DVT-PE Treat 30D Start 5 mg (74 tabs) tablets,dose pack See Rx Instructions .ROUTE .COMPLEX Qty: 74 0RF Rx Instructions: orally per package directions No Action guaifenesin 400 mg tablet 400 mg PO Q4H PRN (Reason: cough) Qty: 30 0RF lisinopril 20 mg tablet See Rx Instructions .ROUTE .COMPLEX Qty: 90 2RF Dose Instruction: Take 1 tablet by mouth once daily Rx Instructions: Take 1 tablet by mouth once daily amlodipine 5 mg tablet 5 mg PO DAILY Qty: 30 2RF albuterol sulfate 90 mcg/actuation HFA aerosol inhaler 2 puff inhalation Q4-6H PRN (Reason: shortness of breath or wheezing) Qty: 8.5 3RF prednisone 20 mg tablet 20 mg PO BID 5 Days Qty: 10 0RF naproxen 500 mg tablet 500 mg PO BID Qty: 30 0RF potassium 99 mg Tablet 99 mg PO DAILY Referrals Follow up/Referrals: [facility] [Other] - See instructions Sami Zaragoza APRN [Primary Care Provider, Family Practice] - See instructions Grupo Fay MD [Staff Physician, Oncology] - See instructions Natasha Delvalle MD [Physician, Pulmonology] - See instructions Activity Restrictions/Add. Instructions Additional Instructions/Restrictions: Please return to the emergency department if you have any worsening of your symptoms. Take the antibiotics as prescribed. I have also prescribed a blood thinner, Eliquis. Please take this as prescribed. I highly recommend you follow-up with your primary care physician on Sunday morning as soon as their office is open to schedule follow-up. As always, return to the emergency department for any concerning symptoms or worsening of your symptoms. I am referring you to our internal communications manager as well as our oncologist. I do encourage you to follow-up with them. Clinical Impressions Clinical Impression: Sepsis, Pneumonia, Mass of left lung, Splenic mass, Left kidney mass, Pleural effusion Print Language Print Language: Slovak Discharge ED Provider: August Garcia General Adult HPI General Chief complaint: PAIN Stated complaint: left side shoulder/ back pain, swollen Time Seen by Provider: 09/27/24 12:38 Mode of Arrival: Ambulatory Source of Information: Patient and Relative Description of Symptoms (Recalled from ER Triage Doc. by RN): PT TO THE ED WITH LEFT SHOULDER PAIN X 6 WEEKS WITHOUT NO KNOWN INJURY. PT STATED HE HAS BEEN SEEN AT HIS PCP FOR THIS 2 OTHER TIMES AND JUST GOT AN XRAY 2 DAYS AGO BUT DOESNT KNOW THE RESULTS YET. PT DENIES ANY CHST PAIN OR SOB History of Present Illness HPI narrative: Benny Farias is an 83y male with a history of hypertension, previously diagnosed lung and kidney lesions in 2000, who presents to the emergency department for complaints of 6 weeks of left shoulder pain. Patient states that he has been followed by his primary care doctor for constant posterior left shoulder pain that he states is not getting any better. He states that reaching across his body makes the pain worse. He denies any chest pain or shortness of breath. He states that the pain has prevented him from sleeping at times. He states that his primary care doctor is wanting to prescribe physical therapy for him. He does state that 3 days ago he had a left shoulder x-ray but does not know the results. Patient denies any abdominal pain, nausea, vomiting, headache, vision changes. Related Data Home Medications ?Medication ?Instructions ?Recorded ?Confirmed potassium 99 mg tablet 99 mg PO DAILY 12/03/2309/05 Previous Rx's ?Medication ?Instructions ?Recorded lisinopril 20 mg tablet See Rx Instructions .Route 0 04/27/24 .COMPLEX #90 tabs guaifenesin 400 mg tablet 400 mg PO Q4H PRN cough #30 tabs 09/01/24 albuterol sulfate 90 mcg/actuation 2 puff inhalation Q 4-6H PRN 09/17/24 aerosol inhaler shortness of breath or wheez ing #8.5 grams amlodipine 5 mg tablet 5 mg PO DAILY #30 tabs 09/17 naproxen 500 mg tablet 500 mg PO BID #30 tabs 09/24 prednisone 20 mg tablet 20 mg PO BID 5 days #10 tabs 09/24/24 apixaban 5 mg (74 tabs) tablets in See Rx Instructions PO .COMPLEX 09/27/24 a dose pack (Eliquis DVT-PE Treat #74 tabs 30D Start) cefdinir 300 mg capsule 300 mg PO BID 10 days #20 ca ps 09/27/24 doxycycline hyclate 100 mg capsule 100 mg PO BID 10 da ys #20 caps 09/27/24 Allergies Allergy/AdvReac Type Severity Reaction Status Date / Time No Known Allergies Allergy Verified 09/16/24 14:51 [facility] Disclaimer: The information contained in this section may have been updated after the patient was seen, as this information can be updated by other users. Medical History (Updated 09/27/24 @ 16:04 by August Garcia MD) Encounter for screening for lung cancer Nicotine dependence, cigarettes, with other nicotine-induced disorders Personal history of nicotine dependence HTN (hypertension) Skin tear of left forearm without complication Surgical History History of surgery on lower extremity History of cholecystectomy History of hernia repair Family History Other Family history of cancer Family history of diabetes mellitus Family history of heart disease Social History (Updated 09/16/24 @ 14:53 by Ewa Reece CMA) Smoking Status: Former smoker alcohol intake: never substance use type: denies use current occupational status: retired and other Travel in the last 8 weeks?: None household members: spouse housing: house Have you lived/traveled outside US in past 30 days?: No Contact w/someone who lives/traveled outside US past 30 days?: No Exposure to someone with infectious disease in past 14 days?: No Do you have a fever (greater than 100.4 F or 38 C)?: No Have you tested positive for COVID-19?: No Exposed to someone with COVID-19 in past 14 days?: No Do you have a sore throat?: No Do you have a cough?: No Do you have any weakness?: No Do you have any diarrhea?: No Are you experiencing any unusual bleeding?: No Do you have any muscle aches/pain?: No Do you have any abdominal pain?: No Are you experiencing loss of taste or smell?: No Other Medical History Have you received the Flu Vaccine for this season: No Have you received the Pneumonia Vaccine: No ROS Obtained: Yes Systems reviewed as appropriate & no additional complaints except as documented Physical Exam General General appearance: alert and in no apparent distress Head Head exam: atraumatic Eye Eye exam: Present normal appearance ENT ENT exam: Present normal external ear exam Neck Neck exam: Present full ROM Chest Chest inspection: Present symmetric chest wall rise Respiratory Respiratory exam: Present normal lung sounds bilaterally; Absent respiratory distress, wheezes or stridor Cardiovascular Cardiovascular exam: Present normal rhythm and tachycardia Abdominal Exam Abdominal exam: Present soft; Absent tenderness or guarding exam: Present deferred Extremities Exam Extremities exam: Present normal inspection Back Exam Back exam: Present normal inspection Neurological Exam Neurological exam: Present alert and oriented X3 Psychiatric Psychiatric exam: Present normal affect Skin Skin exam: Present warm and dry Medical Decision Making Medical Records Screening: Per USPSTF and CDC recommendations, given the prevalence of disease in our region, it is our hospital?s policy to screen for HIV and viral Hepatitis for all patients aged 18 and over and those with ongoing risk factors. Jose Inquiry Pt receiving controlled substance: No Vital Signs: 09/27/24 12:08 09/27/24 13:00 09/27/24 13:14 Temperature 98.9 F Temperature Source Oral Pulse Rate 113 H 113 H Pulse Rate [Left Radial] 120 H Respiratory Rate 17 21 19 Blood Pressure 175/88 H 167/87 H Blood Pressure [Right Arm] 177/81 H Blood Pressure Mean 117 Blood Pressure Mean [Right Arm] 113 Blood Pressure Source [Right Arm] Automatic Cuff Blood Pressure Position [Right Arm] Sitting 02 Sat by Pulse Oximetry 93 L 94 L 94 L Oxygen Delivery Method Room Air Room Air 09/27/24 13:30 09/27/24 14:00 09/27/24 14:30 Temperature Temperature Source Pulse Rate 109 H 114 H Pulse Rate [Left Radial] Respiratory Rate 18 18 16 Blood Pressure 153/83 H 161/85 H 159/86 H Blood Pressure [Right Arm] Blood Pressure Mean 114 Blood Pressure Mean [Right Arm] Blood Pressure Source [Right Arm] Blood Pressure Position [Right Arm] 02 Sat by Pulse Oximetry 92 L 94 L Oxygen Delivery Method Room Air 09/27/24 14:45 09/27/24 15:00 09/27/24 15:31 Temperature Temperature Source Pulse Rate 104 H 103 H 113 H Pulse Rate [Left Radial] Respiratory Rate 18 18 21 Blood Pressure 172/98 H 172/99 H Blood Pressure [Right Arm] Blood Pressure Mean Blood Pressure Mean [Right Arm] Blood Pressure Source [Right Arm] Blood Pressure Position [Right Arm] 02 Sat by Pulse Oximetry 95 95 94 L Oxygen Delivery Method Room Air 09/27/24 16:00 Temperature Temperature Source Pulse Rate 111 H Pulse Rate [Left Radial] Respiratory Rate 17 Blood Pressure 185/98 H Blood Pressure [Right Arm] Blood Pressure Mean Blood Pressure Mean [Right Arm] Blood Pressure Source [Right Arm] Blood Pressure Position [Right Arm] 02 Sat by Pulse Oximetry 93 L Oxygen Delivery Method Room Air Lab Data Lab Results 09/27/24 12:48: VBG pH 7.44 H, VBG pCO2 33.5 L, VBG pO2 87.9 H, VBG HCO3 22.4 L, VBG Total CO2 23.5, VBG O2 Saturation 97.2 H, VBG Base Excess -1.6, VBG Lactic Acid 1.5 09/27/24 13:00: WBC 15.7 H, RBC 4.45 L, Hgb 12.9 L, Hct 40.6 L, MCV 91.2, MCH 29.0, MCHC 31.8, RDW 14.8, Plt Count 242, MPV 10.3, Neut % (Auto) 90.2 H, Lymph % (Auto) 5.3 L, Mcclain % (Auto) 3.4, Eos % (Auto) 0.1, Baso % (Auto) 0.1, Neut # (Auto) 14.2 H, Lymph # (Auto) 0.8, Mcclain # (Auto) 0.5, Eos # (Auto) 0.0, Baso # (Auto) 0.0, ESR 15, Sodium 139, Potassium 4.0, Chloride 106, Carbon Dioxide 26, Anion Gap 11.0, BUN 24 H, Creatinine 0.70, Estimated Creat Clear 67, Estimated GFR 108, Est GFR ( Amer) 131, Glucose 171 H, Calcium 8.5, Total Bilirubin 0.9, AST 21, ALT 14, Alkaline Phosphatase 136 H, Troponin I < 0.01, C-Reactive Protein 13.9 H, NT-Pro-B Natriuret Pep 463 H, Total Protein 6.6, Albumin 3.5, Globulin 3.1, Albumin/Globulin Ratio 1.1 09/27/24 13:00 09/27/24 13:00 Orders (Tests/Meds): ED MEDICATIONS Discontinued Medications Generic Name Dose Route Start Last Admin Trade Name Armenq PRN Reason Stop Dose Admin Apixaban 10 mg 09/27/24 15:54 09/27/24 16:23 Apixaban 5mg Tablet PO 09/27/24 15:55 10 mg ONCE ONE Administration Ceftriaxone Sodium 2 gm/ 100 mls @ 200 mls/hr 09/27/24 14:55 09/27/24 16:09 Sodium Chloride IV 09/27/24 15:24 Infused ONCE ONE Infusion Azithromycin 500 mg/ Sodium 250 mls @ 250 mls/hr 09/27/24 14:55 09/27/24 15:32 Chloride IV 09/27/24 14:56 250 mls/hr ONCE ONE Administration Iopamidol 80 ml 09/27/24 13:50 09/27/24 13:51 Iopamidol-370 (76%);100ml Bottle IV 09/27/24 13:51 80 ml ONCE ONE Administration Morphine Sulfate 2 mg 09/27/24 13:04 09/27/24 13:08 Morphine 2mg/Ml Syringe IV 09/27/24 13:05 2 mg ONCE ONE Administration Sodium Chloride 10 ml 09/27/24 13:50 09/27/24 13:51 Sodium Chloride 0.9% 10ml Syr (Rad Only) IV 09/27/24 13:51 10 ml ONCE ONE Administration Sodium Chloride 50 ml 09/27/24 13:50 09/27/24 13:51 0.9 % Sodium Chloride 50 Ml Vial IV 09/27/24 13:51 50 ml ONCE ONE Administration ORDERS Category Date Time Status CT abdomen pelvis w con Stat Cat Scan 09/27/24 12:[address] angio chest PE protocol Stat Cat Scan 09/27/24 12:[address] head/brain wo con Stat Cat Scan 09/27/24 12:48 Completed BNP [NT Pro Brain Natriuretic Pep.] Stat Lab 09/27/24 13:00 Completed CBC w/Auto Diff [Complete Blood Count Auto Diff] Stat Lab 09/27/24 13:00 Completed CMP [Comprehensive Metabolic Panel] Stat Lab 09/27/24 13:00 Completed CRP [C-Reactive Protein] Stat Lab 09/27/24 13:00 Completed ESR [Erythrocyte Sedimentation Rate] Stat Lab 09/27/24 13:00 Completed Troponin I Stat Lab 09/27/24 13:00 Completed Blood Culture Stat Micro 09/27/24 15:30 Received VBG [Venous Blood Gas] Stat RT 09/27/24 12:48 Completed EKG Request [ECG Request] Stat Y 09/27/24 12:51 Ordered ECG Data Tracing #1: I reviewed this ECG and interpreted as documented below: Sinus tachycardia with ventricular rate of [address] elevations or depressions. QTc normal at 410 Medical Decision Narrative: Benny Farias is an 83y male with a history of hypertension, previously diagnosed lung and kidney lesions in 2000, who presents to the emergency department for complaints of 6 weeks of left shoulder pain. Patient states that he has been followed by his primary care doctor for constant posterior left shoulder pain that he states is not getting any better. He states that reaching across his body makes the pain worse. He denies any chest pain or shortness of breath. He states that the pain has prevented him from sleeping at times. He states that his primary care doctor is wanting to prescribe physical therapy for him. He does state that 3 days ago he had a left shoulder x-ray but does not know the results. Patient denies any abdominal pain, nausea, vomiting, headache, vision changes. On arrival, patient is hypertensive with blood pressure 177/81 (patient states that he is taking his blood pressure medication), tachycardic with a heart rate of 120 (patient states anytime after sitting his heart rate elevates). Afebrile. Oxygen saturation 93% on room air. Physical exam, as stated above, reveals an overall well-appearing male in no distress. He is breathing comfortably. Lung sounds present bilaterally without wheezing or rhonchi. Cardiac ultrasound shows tachycardia but no murmurs or rubs. Abdomen is soft, nontender nondistended. He does not have any rashes or point tenderness over the left shoulder. He has full range of motion of the left shoulder. Left shoulder x-ray on 09/24/2024 was reviewed by me personally. Patient does have degenerative changes of his left shoulder but no acute fracture or dislocation. There does appear to be a large mass in the left lung upper lobe. See radiology report for details. Differential diagnosis includes, but is not limited to: Lung cancer, pulmonary embolism, ACS, musculoskeletal pain, metastatic disease, among others. The most morbid conditions were considered and workup was based on these. I discussed with patient the findings on his recent left shoulder x-ray and that this is likely the source of his shoulder pain. He does state that he is aware that he had lung nodules and kidney nodules diagnosed in the early but never followed up. He states that he took ivermectin 3 years ago that resolved everything. Laboratory studies show elevated white blood cell count of 15.7 with left shift. Mild anemia with hemoglobin 12.9, hematocrit of 40.6, mildly elevated pH of 7.44, bicarb mildly low at 33.5, bicarb of 22.4, lactate normal at 1.5. Electrolytes within normal limits. BUN mildly elevated 24, creatinine normal at 0.7, glucose 171. Initial troponin less than 0.01. CRP is elevated at 13.9. BNP mildly elevated at 463. CT imaging interpreted by me personally. Patient has a large left lung mass with left pleural effusion and findings concerning for pneumonia. Patient also has a mass in the left spleen and kidney concerning for metastatic disease. Per radiology, patient also has an azygous vein thrombosis. per radiology, this may reflect renal cell carcinoma. Patient continues to remain tachycardic in the emergency department. Will obtain blood cultures. IV fluids were considered for sepsis, however given his large pleural effusion, will defer at this time to avoid volume overload. Will also start patient on IV Rocephin 2 g as well as 500 g IV azithromycin. I had a lengthy discussion with patient and family member at bedside about his findings concerning for metastatic disease, pulmonary embolism, azygous vein thrombosis. I discussed that his situation is severe and could lead to or significant morbidity if not treated and that he will need an oncologist and likely internal communications manager and blood thinner. He is adamant that he does not want to be admitted to any hospital, stating that this is likely going to kill him and he is aware of that. He does not pursue treatment for any cancers. He states that he does not want to be admitted as he needs to go home and get his affairs in order before I . I encouraged him to reconsider admission for continued IV antibiotics and anticoagulation at minimum even if he is not wishing to pursue treatment for his cancer, however he does not want to be admitted at this time. He is completely alert and oriented and demonstrated adequate decision-making capacity. He would like to go home and take antibiotics and blood thinner at home. I discussed that there is concern he is septic based on his workup today and that he may need more aggressive antibiotics, however he is still adamant that he wants to go home. Patient was able to reiterate back to me his diagnoses and that this has a high likelihood cause him significant harm or . I did discuss with patient about his wishes regarding resuscitation and he states that he wishes to be DNR at this time. Patient was made DNR. Patient was willing to wait for his antibiotics to finish before leaving. He was also sent a prescription for cefdinir, doxycycline and Eliquis starter pack. Patient stated that if his symptoms worsen, he will return to the emergency department. I also encouraged that he follow-up very closely with his primary care doctor early next week for reassessment. Critical Care Critical Care Time Critical Care Time: No
--- NOTE | 2024-09-27 12:48 | CT_ITS ---
PROCEDURE INFORMATION: Exam: CT Abdomen And Pelvis With Contrast Exam date and time: 09/27/2024 1:42 PM Age: 83 years old Clinical indication: Other: History of kidney lesions; Additional info: Left lung mass, history of kidney lesions TECHNIQUE: Imaging protocol: Computed tomography of the abdomen and pelvis with contrast. 3D rendering (Not supervised by radiologist): MIP and/or 3D reconstructed images were created by the technologist. Radiation optimization: All CT scans at this facility use at least one of these dose optimization techniques: automated exposure control; mA and/or kV adjustment per patient size (includes targeted exams where dose is matched to clinical indication); or iterative reconstruction. Contrast material: ISOVUE; Contrast volume: 80 ml; Contrast route: IV; COMPARISON: CT ABDOMEN PELVIS W CON 08/12/2023 10:12 PM FINDINGS: Liver: Normal. No mass. Gallbladder and biliary ducts: Cholecystectomy Pancreas: Inflammatory changes around the head of the pancreas may represent pancreatitis in the appropriate clinical setting Spleen: 4 x 3.9 x 4 cm Splenic mass most consistent with metastasis. Adrenal glands: Normal. No mass. Kidneys and ureters: 4.8 x 4.7 cm complex Mass in the posterior aspect of the kidney (series 3, image 220). May reflect renal cell carcinoma. 3.2 cm simple cyst left kidney . No follow-up imaging recommended . Stomach and bowel: Diverticulosis of the rectosigmoid. No diverticulitis. Appendix: No evidence of appendicitis. Intraperitoneal space: Unremarkable. No free air. No significant fluid collection. Vasculature: Filling defect in the azygos venous system (series 5, image 76) of the CTA chest consistent with thrombus. This finding was discussed with Dr. Smith Lymph nodes: Unremarkable. No enlarged lymph nodes. Urinary bladder: 12 mm calculus in the posterior aspect of the bladder series 3, image 401. May indicate malignancy or infection Reproductive: Unremarkable as visualized. Bones/joints: Screws in the right ischial tuberosity. Healed fracture of the right inferior pubic ramus Soft tissues: Bilateral inguinal hernias IMPRESSION: 1. 4 x 3.9 x 4 cm Splenic mass most consistent with metastasis. 2. 4.8 x 4.7 cm complex Mass in the posterior aspect of the kidney (series 3, image 220). May reflect renal cell carcinoma. 3 Filling defect in the azygos venous system (series 5, image 76) of the CTA chest consistent with thrombus. This finding was discussed with Dr. Smith
--- NOTE | 2024-09-27 12:48 | CT_ITS ---
PROCEDURE INFORMATION: Exam: CTA Chest With Contrast Exam date and time: 09/27/2024 1:42 PM Age: 83 years old Clinical indication: Other: Left lung mass TECHNIQUE: Imaging protocol: Computed tomographic angiography of the chest with contrast. Exam focused on the arteries. 3D rendering (Not supervised by radiologist): MIP and/or 3D reconstructed images were created by the technologist. Radiation optimization: All CT scans at this facility use at least one of these dose optimization techniques: automated exposure control; mA and/or kV adjustment per patient size (includes targeted exams where dose is matched to clinical indication); or iterative reconstruction. Contrast material: ISOVUE; Contrast volume: 80 ml; Contrast route: INTRAVENOUS (IV); COMPARISON: CT ABDOMEN PELVIS W CON 08/12/2023 10:12 PM FINDINGS: Pulmonary arteries: Filling defect in a branch of the descending right pulmonary artery series 5, image 72 and 75 -78 consistent with pulmonary embolus. Aorta: Unremarkable. No aortic aneurysm. No aortic dissection. Lungs: Complex left lung mass measures 8 x 6.6 x 6.7 cm. Most likely represents malignancy.. Consolidation in the left upper lobe and lingula and left lower lobe may represent multifocal pneumonia. Pleural spaces: Large lobulated pleural effusion on the left.. Loculated pleural effusion along the left heart border. Heart: Unremarkable. No cardiomegaly. No pericardial effusion. Mediastinal space: Mass in the left mediastinum compressing the left pulmonary artery.. (Series 5, image 48 It measures 4.2 x 3 cm and likely represents malignancy. Lobulated mass in the left mediastinum measures 5.4 x 2.5 cm. ( Series 5, image 46 ). Likely malignancy.. Lymph nodes: Unremarkable. No enlarged lymph nodes. Spleen: 4.4 x 4.2 x 4.1 cm Mass in the spleen. Most likely represents metastatic disease. Bones/joints: Stable Compression fracture T12 Soft tissues: Unremarkable. IMPRESSION: 1. Complex left lung mass measures 8 x 6.6 x 6.7 cm. Most likely represents malignancy.. 2. Large lobulated pleural effusion on the left.. Loculated pleural effusion along the left heart border. 3. 4.4 x 4.2 x 4.1 cm Mass in the spleen. Most likely represents metastatic disease. 4. Lobulated mass in the left mediastinum measures 5.4 x 2.5 cm. ( Series 5, image 46 ). Likely malignancy.. 5. Consolidation in the left upper lobe and lingula and left lower lobe may represent multifocal pneumonia. 6 Filling defect in a branch of the descending right pulmonary artery series 5, image 72 consistent with pulmonary embolus THIS REPORT CONTAINS FINDINGS THAT MAY BE CRITICAL TO PATIENT CARE. The findings were verbally communicated via telephone conference with August Garcia at 2:35 PM EDT on 09/27/2024. The findings were acknowledged and understood.
--- NOTE | 2024-09-27 12:48 | CT_ITS ---
PROCEDURE INFORMATION: Exam: CT Head Without Contrast Exam date and time: 09/27/2024 1:37 PM Age: 83 years old Clinical indication: Other: Left lung mass TECHNIQUE: Imaging protocol: Computed tomography of the head without contrast. Radiation optimization: All CT scans at this facility use at least one of these dose optimization techniques: automated exposure control; mA and/or kV adjustment per patient size (includes targeted exams where dose is matched to clinical indication); or iterative reconstruction. COMPARISON: No relevant prior studies available. FINDINGS: Brain: Mild brain volume loss. Moderate white matter changes typical of hypertension or chronic small vessel ischemia. Cerebral ventricles: No ventriculomegaly. Paranasal sinuses: Visualized sinuses are unremarkable. No fluid levels. Mastoid air cells: Visualized mastoid air cells are well aerated. Orbital cavities: Bilateral lens replacements. Teeth: Edentulous. Bones: Unremarkable. No acute fracture. Soft tissues: Unremarkable. Vasculature: Atherosclerosis. IMPRESSION: No evidence of metastatic disease on CT head without contrast.
[2024-09-27] MEDS: MORPHINE 2MG/ML SYRINGE 2 MG IV (13:08)
[2024-09-27 13:10] LABS: Lactate Venous 1.5 mmol/L (0.4-2.0); VBG HCO3 22.4 mmol/L (23-30); VBG PCO2 33.5 mmol/L (35-51); VBG PH 7.44 mmol/L (7.31-7.41); VBG PO2 87.9 mmol/L (28-40)
[2024-09-27 13:15] LABS: Albumin Level 3.5 g/dl (3.5-5.0); Chloride 106 mmol/L (98-107); Potassium 4.0 mmoL/L (3.5-5.1); Sodium 139 mmol/L (136-145)
[2024-09-27 13:16] LABS: Hematocrit 40.6 % (42.0-52.0); Hemoglobin 12.9 g/dL (14.1-18.0); Immature Granulocytes % 0.9 %; Mean Corpuscular HGB Conc 31.8 g/dL (31.8-35.4); Mean Corpuscular Hemoglobin 29.0 pg (27.0-31.2); Mean Corpuscular Volume 91.2 fl (80-94); Nucleated Red Blood Cells % 0 %; Platelet Count 242 K/mm3 (142-424); Red Blood Count 4.45 M/mm3 (4.60-6.20); Red Cell Distribution Width-SD 49.5 fL; White Blood Count 15.7 K/mm3 (4.8-10.8)
[2024-09-27 13:18] LABS: Alanine Aminotransferase 14 U/L (12-78); Albumin/Globulin Ratio 1.1 (1.1-1.8); Alkaline Phosphatase 136 U/L (38-126); Anion Gap 11.0 mEq/L (5-15); Aspartate Amino Transferase 21 U/L (17-59); Bilirubin,Total 0.9 mg/dl (0.2-1.3); Blood Urea Nitrogen 24 mg/dl (9-20); Calcium 8.5 mg/dl (8.4-10.2); Carbon Dioxide 26 mmol/L (22.0-30.0); Creatinine Clearance Estimated 67 mL/min (50-200); Creatinine,Serum 0.70 mg/dl (0.66-1.25); Estimated Glomerular Filt Rate 108 ml/min (>60); GFR (African American) 131 ML/MIN (>60); Globulin 3.1 g/dL (1.3-3.2); Glucose 171 mg/dl (74-100); Total Protein,Serum 6.6 g/dl (6.3-8.2)
[2024-09-27 13:24] LABS: C-Reactive Protein 13.9 mg/L (0-4)
[2024-09-27 13:30] LABS: NT Pro Brain Natriuretic Pep. 463 pg/mL (0-450)
[2024-09-27 13:33] LABS: Troponin I < 0.01 ng/ml (0.00-0.034)
[2024-09-27] MEDS: IOPAMIDOL-370 (76%);100ML BOTTLE 80 ML IV (13:51)
[2024-09-27] MEDS: 0.9 % SODIUM CHLORIDE 50 ML VIAL IV (13:51)
[2024-09-27] MEDS: SODIUM CHLORIDE 0.9% 10ML SYR (RAD ONLY) 10 ML IV (13:51)
[2024-09-27] MEDS: AZITHROMYCIN 500 MG in 0.9 % SODIUM CHLORIDE 250 ML 250 MG IV (15:32)
[2024-09-27] MEDS: APIXABAN 5MG TABLET 10 MG PO (16:23)
--- NOTE | 2024-09-27 17:07 | PC.NURSE ---
Patient opting to leave AMA after extensive education and conversations with Dr. Garcia. Patient and family verbalize clear and thorough understanding of risk versus benefits of staying for further treatment versus leaving AMA. Patient and family educated on Eliquis use and precautions. AMA form complete and placed on chart.
== END 2024-09-27 17:13 | disposition left against medical advice (07) ==
PROVIDERS: Emergency Provider Student in an Organized Health Care Education/Training Program; PCP Nurse Practitioner Family
DX: A41.9 Sepsis, unspecified organism (principal); J18.9 Pneumonia, unspecified organism; J90 Pleural effusion, not elsewhere classified; R91.8 Other nonspecific abnormal finding of lung field; D73.89 Other diseases of spleen; N28.89 Other specified disorders of kidney and ureter; I10 Essential (primary) hypertension; F17.210 Nicotine dependence, cigarettes, uncomplicated; K85.90 Acute pancreatitis without necrosis or infection, unspecified
CPT/HCPCS: 70450; 71275; 74177; 80053; 82803; 83880; 84484; 85025; 85651; 86140; 87040; 93005; 96374; 96375; 99284; 99285; J0456; J0696; J2270; J7050; Q9967

== ENCOUNTER 2024-09-29 16:21 | Inpatient (IN) | payer MEDICARE, MEDICAID, SELFPAY ==
--- NOTE | 2024-09-29 16:35 | CA_ITS ---
APPROVED REPORT EXAM: Comprehensive 2D, Doppler, and color-flow Echocardiogram Stitch Separator: Zeinab Cisneros RVT Ht: 6 ft 0 in Wt: 171lbs BSA: 1.99 BP: 185/98 mmHg Indications: PULMONARY EMBOLI,PLEURAL EFFUSION TDS-LIMITED WINDOWS 2D Dimensions IVSd 1.31 cm M: 0.6-1.2 LVEF (Visual) 62.60 % PWd 0.78 cm M: 0.6 - 1.2 LVDd 4.59 cm M: 4.2 - 5.9 LVDs 3.04 cm M: 2.5 - 4.0 M-Mode Dimensions LA Diam 3.27 cm (1.9-4.0) TAPSE 3.70 (<1.7) LV Diastology E Decel Time 150 (160-240 msec) E/A Ratio 0.6 Aortic Valve PAULA Index 2.01 cm2/m2 AoV Peak Celestino. 151.0 (50-130 cm/s) AO Peak GR. 9.10 mmHg AO Mean GR. 4.60 (<5 mmHg) AO VTI 22.6 (18-25 cm) PAULA (VTI) 4.11 (2.5-4.5 cm2) Mitral Valve MV E Max Celestino. 69.0 (40-130 cm/s) MV A Velocity 124.0 (40-130 cm/s) E/A Ratio 0.56 MV PHT 44.0 ms Pulmonary Valve PV Peak Velocity 98.0 (50-150 cm/s) Tricuspid Valve TR P. Velocity 290.00 cm/s RAP Estimate 8.00 mmHg RVSP 41.60 mmHg Left Ventricle The left ventricle is normal size. Left ventricular systolic function is low-normal. There is increased left ventricular wall thickness. There is normal LV segmental wall motion. The left ventricular diastolic function is indeterminate. LVEF is 50% Right Ventricle The right ventricle is normal size. The right ventricular systolic function is normal. Atria The left atrium is mildly dilated. The right atrium is mildly dilated. There is no color Doppler evidence of interatrial shunt. Aortic Valve The aortic valve is mildly thickened. There is no hemodynamically significant aortic valvular stenosis. Trace aortic regurgitation is present. Mitral Valve The mitral valve is normal in structure. No evidence of mitral valve stenosis. Mild mitral regurgitation is present. Tricuspid Valve The tricuspid valve leaflets are well-visualized. Trace tricuspid regurgitation. There is insufficient TR jet to estimate RVSP. Pulmonic Valve The pulmonary valve is not well-visualized. Great Vessels The aortic root is normal in size. The IVC is not well-visualized. Pericardium There is a small sized, circumferential pericardial effusion present. The largest pocket measures 0.3 cm in diastole. No clear echo indications of tamponade, but the IVC is not visualized in the study to evaluate for collapsibility. Other Information Study Quality: Technically Difficult Conclusion Technically difficult study. Low-normal LV systolic function (LVEF 50%). Normal RV size and function. Mild biatrial dilation. Mild MR. Small sized, circumferential pericardial effusion present. The largest pocket measures 0.3 cm in diastole. No clear echo indications of tamponade, but the IVC is not visualized in the study to evaluate for collapsibility. Electronically signed by : Ashanti Thompson MD 09/30/2024 00:27:37
--- NOTE | 2024-09-29 17:11 | XR_ITS ---
PROCEDURE INFORMATION: Exam: XR Chest Exam date and time: 09/29/2024 5:21 PM Age: 83 years old Clinical indication: Shortness of breath TECHNIQUE: Imaging protocol: Radiologic exam of the chest. Views: 1 view. COMPARISON: CT ANGIO CHEST PE PROTOCOL 09/27/2024 1:42 PM FINDINGS: Lungs: Increased consolidation in the left upper lung, reflecting known left upper lobe neoplasm. Right lung is clear. Pleural spaces: Known large left pleural effusion appears larger as compared with prior. No pneumothorax. Heart/Mediastinum: Cardiac silhouette is difficult to evaluate as it is silhouetted. Rightward displacement of the trachea with increased density in the upper mediastinum, reflecting known adenopathy, likely metastatic. Bones/joints: Mild degenerative changes of the glenohumeral joints. No acute fracture. IMPRESSION: 1. Known large left pleural effusion appears larger as compared with prior. 2. Increased consolidation in the left upper lung, reflecting known left upper lobe neoplasm. Superimposed infectious pneumonic process should be entertained in the appropriate clinical setting. 3. Rightward displacement of the trachea with increased density in the upper mediastinum, reflecting known adenopathy, likely metastatic.
[2024-09-29 17:58] LABS: Hematocrit 39.0 % (42.0-52.0); Hemoglobin 12.9 g/dL (14.1-18.0); Immature Granulocytes % 1.3 %; Mean Corpuscular HGB Conc 33.1 g/dL (31.8-35.4); Mean Corpuscular Hemoglobin 30.2 pg (27.0-31.2); Mean Corpuscular Volume 91.3 fl (80-94); Nucleated Red Blood Cells % 0 %; Platelet Count 195 K/mm3 (142-424); Red Blood Count 4.27 M/mm3 (4.60-6.20); Red Cell Distribution Width-SD 49.0 fL; White Blood Count 13.4 K/mm3 (4.8-10.8)
[2024-09-29 18:17] LABS: Chloride 105 mmol/L (98-107)
[2024-09-29 18:18] LABS: Albumin Level 3.4 g/dl (3.5-5.0); Potassium 3.9 mmoL/L (3.5-5.1); Sodium 137 mmol/L (136-145)
[2024-09-29 18:20] LABS: Blood Urea Nitrogen 22 mg/dl (9-20); Creatinine,Serum 0.60 mg/dl (0.66-1.25); Estimated Glomerular Filt Rate 129 ml/min (>60); GFR (African American) 156 ML/MIN (>60)
[2024-09-29 18:21] VITALS: BMI 22.1
[2024-09-29 18:21] LABS: Alanine Aminotransferase 13 U/L (12-78); Albumin/Globulin Ratio 1.1 (1.1-1.8); Alkaline Phosphatase 126 U/L (38-126); Anion Gap 8.9 mEq/L (5-15); Aspartate Amino Transferase 26 U/L (17-59); Bilirubin,Total 1.0 mg/dl (0.2-1.3); Calcium 8.2 mg/dl (8.4-10.2); Carbon Dioxide 27 mmol/L (22.0-30.0); Globulin 3.0 g/dL (1.3-3.2); Glucose 116 mg/dl (74-100); Magnesium 2.0 mg/dl (1.6-2.3); Total Protein,Serum 6.4 g/dl (6.3-8.2)
[2024-09-29 18:27] LABS: C-Reactive Protein 43.8 mg/L (0-4)
[2024-09-29 18:28] LABS: PTT Heparin (inpatient only) 30.2 Seconds (50-75)
[2024-09-29] MEDS: PIPERCILLIN/TAZO 3.375 GM in 0.9 % SODIUM CHLORIDE 50 ML IV (18:35)
[2024-09-29 18:36] LABS: D-Dimer > 8.10 ug/mL (0.0-0.5)
[2024-09-29 18:52] LABS: Creatinine Clearance Estimated 62 mL/min (50-200); Troponin I < 0.01 ng/ml (0.00-0.034)
[2024-09-29 19:02] VITALS: BP 167/83; PULSE 103; RESP 21; TEMP 36.3; O2SAT 94
[2024-09-29 19:19] LABS: Procalcitonin 0.159 ng/mL (0.0-2.0)
[2024-09-29 20:00] VITALS: BP 157/86; PULSE 96; RESP 16; TEMP 36.7; O2SAT 96
[2024-09-29] MEDS: HEPARIN SODIUM 5,000 UNIT/ML VIAL 6000 UNIT IV (20:08)
[2024-09-29] MEDS: HEPARIN 25,000 UNITS/D5W 500 ML 27 UNIT IV (20:10)
[2024-09-29] MEDS: HEPARIN DRIP CONSULT 1 EACH NOTAPPLIC (20:11)
[2024-09-29] MEDS: VANCOMYCIN CONSULT REQUEST 1 EACH NOTAPPLIC (20:14)
--- NOTE | 2024-09-29 21:09 | P.HP_ITS ---
<Statement entered by Prabhjot Monae MD - 10/01/24 15:41> Personally evaluated patient and agree with the plan of care as outlined by the [facility] T[facility]ER. 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 Patient has been noted here in the recent past of having a pleural effusion left lung but began to have significant shoulder pain mid back pain with an increase in the amount of fluid in the left lung.. Patient has come to the hospital decision has been made to fied a thoracentesis to the left lung tomorrow to see if this will provide him any comfort. Patient is noted as being extremely hard of hearing. His 2 daughters are with him which then also was able to give me some extra history upon the patient.. Patient's only complaint at this time is the pain is resolved but he feels like he is constipated. Patient is presently upon antibiotics also. And will be seen in the morning by pulmonology. [facility] Disclaimer: The information contained in this section may have been updated after the patient was seen, as this information can be updated by other users. 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 Encounter for screening for lung cancer Nicotine dependence, cigarettes, with other nicotine-induced disorders Personal history of nicotine dependence HTN (hypertension) Skin tear of left forearm without complication Surgical History History of surgery on lower extremity History of cholecystectomy History of hernia repair Family History Other Family history of cancer Family history of diabetes mellitus Family history of heart disease Social History Smoking Status: Former smoker alcohol intake: never substance use type: denies use current occupational status: retired and other Travel in the last 8 weeks?: None household members: spouse housing: house Have you lived/traveled outside US in past 30 days?: No Contact w/someone who lives/traveled outside US past 30 days?: No Exposure to someone with infectious disease in past 14 days?: No Do you have a fever (greater than 100.4 F or 38 C)?: No Have you tested positive for COVID-19?: No Exposed to someone with COVID-19 in past 14 days?: No Do you have a sore throat?: No Do you have a cough?: No Do you have any weakness?: No Do you have any diarrhea?: No Are you experiencing any unusual bleeding?: No Do you have any muscle aches/pain?: No Do you have any abdominal pain?: No Are you experiencing loss of taste or smell?: No Other Medical History Have you received the Flu Vaccine for this season: No Have you received the Pneumonia Vaccine: No Review of Systems Review of Systems Review of systems:: pertinent systems reviewed and negative unless documented below Constitutional Constitutional: Reports as per HPI Comments: Patient is very pleasant during exam is hard of hearing but answers questions well Eyes Eyes: Reports as per HPI ENT Ears, Nose, Mouth, and Throat: Reports as per HPI *Cardiovascular Cardiovascular: Reports as per HPI and Reports dyspnea on exertion *Respiratory Respiratory: Reports as per HPI and Reports dyspnea on exertion *Gastrointestinal Gastrointestinal: Reports as per HPI, Reports belching and Reports change in stool character *Musculoskeletal Musculoskeletal: Reports as per HPI Integumentary/Breasts Skin/Breast: Reports as per HPI *Neurologic Neurologic: Reports as per HPI Psychiatric Psychiatric: Reports as per HPI Endocrine Endocrine: Reports as per HPI Hematologic/Lymphatic Hematologic/Lymphatic: Reports as per HPI Allergic/Immunologic Allergic/Immunologic: Reports as per HPI Meds Home Medications and Allergies Home Medications ?Medication ?Instructions ?Recorded ?Confirmed ?Type potassium 99 mg tablet 99 mg PO DAILY 12/03/2309/06 History albuterol sulfate 90 mcg/actuation 2 puff inhalation Q 4-6H PRN 09/17/24 09/29/24 Rx aerosol inhaler shortness of breath or wheez ing #8.5 grams amlodipine 5 mg tablet 5 mg PO DAILY #30 tabs 09/1709/29/24 Rx apixaban 5 mg (74 tabs) tablets in See Rx Instructions PO .COMPLEX 09/27/24 09/29/24 Rx a dose pack (Eliquis DVT-PE Treat #74 tabs 30D Start) oxycodone 5 mg tablet 5 mg PO Q6H PRN pain #12 tab s 09/27/24 09/29/24 Rx New Prescriptions to Start Prescriptions: Allergies Allergy/AdvReac Type Severity Reaction Status Date / Time No Known Allergies Allergy Verified 09/29/24 14:01 Exam Data for Last 24 hours Vital signs and Labs for Last 24 Hours: Temp Pulse Resp BP Pulse Ox O2 Del Method O2 Flow Rate 98.1 F 96 H 16 157/86 H 96 Nasal Cannula 2 09/29/24 20:00 09/29/24 20:00 09/29/24 20:00 09/29/24 20:00 09/29/24 20:00 09/29/24 20:00 09/29/24 20:00 Laboratory Results - last 24 hr 09/29/24 17:35: WBC 13.4 H, RBC 4.27 L, Hgb 12.9 L, Hct 39.0 L, MCV 91.3, MCH 30.2, MCHC 33.1, RDW 14.6, Plt Count 195, MPV 10.2, Neut % (Auto) 80.5 H, Lymph % (Auto) 7.8 L, [place] % (Auto) 8.1, Eos % (Auto) 1.9, Baso % (Auto) 0.4, Neut # (Auto) 10.8 H, Lymph # (Auto) 1.1, [place] # (Auto) 1.1 H, Eos # (Auto) 0.3, Baso # (Auto) 0.1, ESR 12, APTT 30.2 L, D-Dimer > 8.10 H, Sodium 137, Potassium 3.9, Chloride 105, Carbon Dioxide 27, Anion Gap 8.9, BUN 22 H, Creatinine 0.60 L, Estimated Creat Clear 62, Estimated GFR 129, Est GFR ( Amer) 156, Glucose 116 H, Calcium 8.2 L, Magnesium 2.0, Total Bilirubin 1.0, AST 26, ALT 13, Alkaline Phosphatase 126, Lactate Dehydrogenase 448, Troponin I < 0.01, C-Re active Protein 43.8 H D, Total Protein 6.4, Albumin 3.4 L, Globulin 3.0, Albumin/Globulin Ratio 1.1, Procalcitonin 0.159 I & O for Last 24 hours: Intake & Output 09/27/24 09/28/24 09/29/24 09/30/24 05:59 05:59 05:59 05:59 Intake Total 50 / 50 Balance 50 / 50 Weight 168 lb Radiology Reports for the Last 24 Hours: Previous x-rays showed a mass with mets to the abdomen. Present chest x-ray shows an increase in the pleural effusion Constitutional Constitutional: no acute distress and cooperative *Routine HEENT Exam Head: Present normocephalic and atraumatic Eye: Present EOMI and PERRL ENT: Present mucous membranes moist *Routine Neck Exam Neck: Present supple and full ROM *Routine Respiratory Exam Respiratory: Present decreased breath sounds Comments: Equal expansion bilaterally but has significantly decreased left lung sounds throughout *Routine Cardiovascular Exam Cardiovascular: Present tachycardia Comments: Little tachycardia with poor skin turgor to the lower extremities no signs of edema *Routine Abdominal Exam Abdominal: Present soft and normoactive bowel sounds *Routine Rectal Exam Rectal:: deferred *Routine Genitalia Exam Genitalia:: deferred *Routine Extremities Exam Extremities: Present full ROM and pulses intact *Routine Skin Exam Skin: Present dry and warm *Routine Neurological Exam Neurological: Present alert, oriented X3, vision grossly intact and normal speech Comments: Very hard of hearing H&P: Result Impressions Metastatic lung cancer with increased fluid accumulation in the left lung field, possibly related to mid back and shoulder pain. 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: Status: Acute Category: Medical Code(s): C79.9 - Secondary malignant neoplasm of unspecified site; C34.90 - Malignant neoplasm of unspecified part of unspecified bronchus or lung (2) Pleural effusion: Status: Acute Category: Medical Code(s): J90 - Pleural effusion, not elsewhere classified (3) Back pain: Status: Acute Qualifiers: Back pain location: back pain in unspecified location Chronicity: acute Back pain laterality: bilateral Qualified Code(s): M54.9 - Dorsalgia, unspecified Category: Medical Code(s): M54.9 - Dorsalgia, unspecified (4) Left kidney mass: Status: Acute Category: Medical Code(s): N28.89 - Other specified disorders of kidney and ureter (5) Splenic mass: Status: Acute Category: Medical Code(s): R16.1 - Splenomegaly, not elsewhere classified (6) Hard of hearing: Status: Acute Category: Medical Code(s): H91.90 - Unspecified hearing loss, unspecified ear Plan 1. Patient has been admitted to the floor also seen by Dr. Santhosh ng antibiotics have already been started.. Pain control will be available tonight if his pain was to return. And pulmonology will see him in the morning with the intention of the thoracentesis of the left lung.
[2024-09-29 21:27] LABS: PTT Heparin (inpatient only) > 200.0 Seconds (50-75)
[2024-09-29] MEDS: VANCOMYCIN/WATER FOR INJ (PEG) 1.75 GM/350 ML PIGGYBACK IV (21:40)
[2024-09-29] MEDS: OXYCODONE 5MG W/APAP 325MG TABLET 1 EACH PO (21:55)
[2024-09-29 23:35] LABS: PTT Heparin (inpatient only) 141.2 Seconds (50-75)
[2024-09-30] VITALS: BP 157/81; PULSE 98; RESP 16; TEMP 36.6; O2SAT 96
[2024-09-30 01:36] LABS: PTT Heparin (inpatient only) 76.5 Seconds (50-75)
[2024-09-30] MEDS: PIPERCILLIN/TAZO 3.375 GM in 0.9 % SODIUM CHLORIDE 50 ML IV ×3 (01:56→17:43)
[2024-09-30 03:30] LABS: MRSA DNA PCR Negative (Negative)
[2024-09-30 04:00] VITALS: BP 166/82; PULSE 92; RESP 16; TEMP 36.4; O2SAT 98; BMI 21.9
[2024-09-30 06:35] LABS: Hematocrit 39.4 % (42.0-52.0); Hemoglobin 12.8 g/dL (14.1-18.0); Immature Granulocytes % 1.8 %; Mean Corpuscular HGB Conc 32.5 g/dL (31.8-35.4); Mean Corpuscular Hemoglobin 29.9 pg (27.0-31.2); Mean Corpuscular Volume 92.1 fl (80-94); Nucleated Red Blood Cells % 0 %; Platelet Count 164 K/mm3 (142-424); Red Blood Count 4.28 M/mm3 (4.60-6.20); Red Cell Distribution Width-SD 48.8 fL; White Blood Count 12.1 K/mm3 (4.8-10.8)
[2024-09-30 06:46] LABS: Albumin Level 3.3 g/dl (3.5-5.0); Chloride 105 mmol/L (98-107); Potassium 3.9 mmoL/L (3.5-5.1); Sodium 137 mmol/L (136-145)
[2024-09-30 06:49] LABS: Alanine Aminotransferase 16 U/L (12-78); Albumin/Globulin Ratio 1.2 (1.1-1.8); Alkaline Phosphatase 121 U/L (38-126); Anion Gap 7.9 mEq/L (5-15); Aspartate Amino Transferase 26 U/L (17-59); Bilirubin,Total 1.3 mg/dl (0.2-1.3); Blood Urea Nitrogen 18 mg/dl (9-20); Calcium 8.0 mg/dl (8.4-10.2); Carbon Dioxide 28 mmol/L (22.0-30.0); Cholesterol 130 mg/dl (140-200); Creatinine Clearance Estimated 61 mL/min (50-200); Creatinine,Serum 0.70 mg/dl (0.66-1.25); Estimated Glomerular Filt Rate 108 ml/min (>60); GFR (African American) 131 ML/MIN (>60); Globulin 2.8 g/dL (1.3-3.2); Glucose 100 mg/dl (74-100); Magnesium 2.0 mg/dl (1.6-2.3); Total Protein,Serum 6.1 g/dl (6.3-8.2); Triglycerides 81 mg/dl (30-150)
[2024-09-30 06:50] LABS: HDL Cholesterol 42 mg/dl (40-60)
[2024-09-30 07:06] LABS: PTT Heparin (inpatient only) 44.4 Seconds (50-75)
--- NOTE | 2024-09-30 07:52 | EXP.PHA.CONS ---
Pharmacy Consult Date: 09/30/24 Time: 07:53 Referring provider: DR ELLINGTON Reason for Consult:: VANCOMYCIN DOSING CONSULT Allergies Allergy/AdvReac Type Severity Reaction Status Date / Time No Known Allergies Allergy Verified 09/29/24 14:01 Home Medications ?Medication ?Instructions ?Recorded ?Confirmed ?Type potassium 99 mg tablet 99 mg PO DAILY 12/03/23 09/29/24 History albuterol sulfate 90 mcg/actuation 2 puff inhalation Q4-6H PRN 09/17/24 09/29/24 Rx aerosol inhaler shortness of breath or wheezing #8.5 grams amlodipine 5 mg tablet 5 mg PO DAILY #30 tabs 09/17/24 09/29/24 Rx apixaban 5 mg (74 tabs) tablets in See Rx Instructions PO .COMPLEX 09/27/24 09/29/24 Rx a dose pack (Eliquis DVT-PE Treat #74 tabs 30D Start) oxycodone 5 mg tablet 5 mg PO Q6H PRN pain #12 tabs 09/27/24 09/29/24 Rx New Prescriptions to Start Prescriptions: Height: 1.85 m Weight: 74.933 kg Laboratory Results:: Laboratory Results - last 24 hr 09/29/24 17:35: WBC 13.4 H, RBC 4.27 L, Hgb 12.9 L, Hct 39.0 L, MCV 91.3, MCH 30.2, MCHC 33.1, RDW 14.6, Plt Count 195, MPV 10.2, Neut % (Auto) 80.5 H, Lymph % (Auto) 7.8 L, [place] % (Auto) 8.1, Eos % (Auto) 1.9, Baso % (Auto) 0.4, Neut # (Auto) 10.8 H, Lymph # (Auto) 1.1, [place] # (Auto) 1.1 H, Eos # (Auto) 0.3, Baso # (Auto) 0.1, ESR 12, APTT 30.2 L, D-Dimer > 8.10 H, Sodium 137, Potassium 3.9, Chloride 105, Carbon Dioxide 27, Anion Gap 8.9, BUN 22 H, Creatinine 0.60 L, Estimated Creat Clear 62, Estimated GFR 129, Est GFR ( Amer) 156, Glucose 116 H, Calcium 8.2 L, Magnesium 2.0, Total Bilirubin 1.0, AST 26, ALT 13, Alkaline Phosphatase 126, Lactate Dehydrogenase 448, Troponin I < 0.01, C-Reactive Protein 43.8 H D, Total Protein 6.4, Albumin 3.4 L, Globulin 3.0, Albumin/Globulin Ratio 1.1, Procalcitonin 0.159 09/29/24 18:30: MRSA (PCR) Negative 09/29/24 20:49: APTT > 200.0 H* 09/29/24 22:31: APTT 141.2 H* 09/30/24 00:57: APTT 76.5 H* 09/30/24 05:49: WBC 12.1 H, RBC 4.28 L, Hgb 12.8 L, Hct 39.4 L, MCV 92.1, MCH 29.9, MCHC 32.5, RDW 14.5, Plt Count 164, MPV 10.4, Neut % (Auto) 77.6, Lymph % (Auto) 9.0 L, [place] % (Auto) 8.4, Eos % (Auto) 2.7, Baso % (Auto) 0.5, Neut # (Auto) 9.4 H, Lymph # (Auto) 1.1, [place] # (Auto) 1.0, Eos # (Auto) 0.3, Baso # (Auto) 0.1, APTT 44.4 L, Sodium 137, Potassium 3.9, Chloride 105, Carbon Dioxide 28, Anion Gap 7.9, BUN 18, Creatinine 0.70, Estimated Creat Clear 61, Estimated GFR 108, Est GFR ( Amer) 131, Glucose 100, Calcium 8.0 L, Magnesium 2.0, Total Bilirubin 1.3, AST 26, ALT 16, Alkaline Phosphatase 121, Total Protein 6.1 L, Albumin 3.3 L, Globulin 2.8, Albumin/Globulin Ratio 1.2, Triglycerides 81, Cholesterol 130 L, LDL Cholesterol Direct 63.42 L, VLDL Cholesterol 16, HDL Cholesterol 42, Cholesterol/HDL Ratio 3.1 Medical History: 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 Drug selected: Vancomycin Loading dose (mg): 1750 MG Vd (liters): 52.5 (factor used: 0.7 L/kg) Sudhir (hr-1): 0.055 Half life (hrs): 12.60 CLvanco=?? 2.888 L/hr Recommended dose: 1250 mg Interval: 18 hrs Infusion time (hrs): 2.0 Predicted peak (mcg/mL): 35.9 Predicted trough (mcg/mL): 14.89 Total body weight is being used for vancomycin dosing. Recommendations: Give Vancomycin 1250 mg q 18 hrs with an expected Cpeak of 35.9 mcg/ml and an expected Ctrough of 14.89 mcg/ml TO START 09/30/24 AT 16:00, PATIENT RECEIVED ONE TIME LOADING DOSE OF VANCOMYCIN 1750 MG IV 09/29/24 AT 21:40. AUC 0-24 /SALVADOR Data: SALVADOR 0.5 mcg/mL:?? AUC/SALVADOR:? 1154.2 SALVADOR 1.0 mcg/mL:?? AUC/SALVADOR:? 577.1 --------- SALVADOR 1.5 mcg/mL:?? AUC/SALVADOR:? 384.7 SALVADOR 2.0 mcg/mL:?? AUC/SALVADOR:? 288.6 Thank you for the consult
[2024-09-30 08:00] VITALS: BP 177/90; PULSE 106; RESP 24; TEMP 36.4; O2SAT 94
--- NOTE | 2024-09-30 08:08 | HMH.PHAHEP ---
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 Comment:: PLATELET COUNT = 195,000 Dose Monitor 2: Date: 09/29/24 Time: 21:00 PTT Result:: GREATER THAN 200.0 SECONDS Infusion Rate:: [place] RECOMMENDED DECREASING HEPARIN DRIP TO 1121 UNITS/HOUR = 22.42 ML/HOUR Dose Monitor 3: Date: 09/29/24 Time: 22:00 PTT Result:: 141.2 SECONDS Infusion Rate:: [place] RECOMMENDED DECREASING HEPARIN DRIP TO 893 UNITS/HOUR = 17.86 ML/HOUR Dose Monitor 4: Date: 09/30/24 Time: 00:35 PTT Result:: 76.5 SECONDS Infusion Rate:: [place] RECOMMENDED DECREASING HEPARIN DRIP TO 816 UNITS/HOUR = 16.32 ML/HOUR Dose Monitor 5: Date: 09/30/24 Time: 05:45 PTT Result:: 44.4 SECONDS Infusion Rate:: [place] RECOMMENDED INCREASING HEPARIN DRIP TO 1000 UNITS/HOUR = 20 ML/HOUR AND BOLUSING 3000 UNITS HEPARIN IV ONCE. Comment:: PLATELET COUNT = 164,000 Core Measures Is INR > or = 2 at discharge?: No Most Recent Labs:: Laboratory Results - last 24 hr 09/29/24 17:35: WBC 13.4 H, RBC 4.27 L, Hgb 12.9 L, Hct 39.0 L, MCV 91.3, MCH 30.2, MCHC 33.1, RDW 14.6, Plt Count 195, MPV 10.2, Neut % (Auto) 80.5 H, Lymph % (Auto) 7.8 L, [place] % (Auto) 8.1, Eos % (Auto) 1.9, Baso % (Auto) 0.4, Neut # (Auto) 10.8 H, Lymph # (Auto) 1.1, [place] # (Auto) 1.1 H, Eos # (Auto) 0.3, Baso # (Auto) 0.1, ESR 12, APTT 30.2 L, D-Dimer > 8.10 H, Sodium 137, Potassium 3.9, Chloride 105, Carbon Dioxide 27, Anion Gap 8.9, BUN 22 H, Creatinine 0.60 L, Estimated Creat Clear 62, Estimated GFR 129, Est GFR ( Amer) 156, Glucose 116 H, Calcium 8.2 L, Magnesium 2.0, Total Bilirubin 1.0, AST 26, ALT 13, Alkaline Phosphatase 126, Lactate Dehydrogenase 448, Troponin I < 0.01, C-Reactive Protein 43.8 H D, Total Protein 6.4, Albumin 3.4 L, Globulin 3.0, Albumin/Globulin Ratio 1.1, Procalcitonin 0.159 09/29/24 18:30: MRSA (PCR) Negative 09/29/24 20:49: APTT > 200.0 H* 09/29/24 22:31: APTT 141.2 H* 09/30/24 00:57: APTT 76.5 H* 09/30/24 05:49: WBC 12.1 H, RBC 4.28 L, Hgb 12.8 L, Hct 39.4 L, MCV 92.1, MCH 29.9, MCHC 32.5, RDW 14.5, Plt Count 164, MPV 10.4, Neut % (Auto) 77.6, Lymph % (Auto) 9.0 L, [place] % (Auto) 8.4, Eos % (Auto) 2.7, Baso % (Auto) 0.5, Neut # (Auto) 9.4 H, Lymph # (Auto) 1.1, [place] # (Auto) 1.0, Eos # (Auto) 0.3, Baso # (Auto) 0.1, APTT 44.4 L, Sodium 137, Potassium 3.9, Chloride 105, Carbon Dioxide 28, Anion Gap 7.9, BUN 18, Creatinine 0.70, Estimated Creat Clear 61, Estimated GFR 108, Est GFR ( Amer) 131, Glucose 100, Calcium 8.0 L, Magnesium 2.0, Total Bilirubin 1.3, AST 26, ALT 16, Alkaline Phosphatase 121, Total Protein 6.1 L, Albumin 3.3 L, Globulin 2.8, Albumin/Globulin Ratio 1.2, Triglycerides 81, Cholesterol 130 L, LDL Cholesterol Direct 63.42 L, VLDL Cholesterol 16, HDL Cholesterol 42, Cholesterol/HDL Ratio 3.1 If INR was < than 2.0 why was therapy stopped?: DRIP STOPPED PER DR PEREZ ORDER. Were Heparin and Warfarin started on the same day?: No If not, why?: DRIP STOPPED PER DR PEREZ ORDER.
[2024-09-30] MEDS: HEPARIN SODIUM 5,000 UNIT/ML VIAL 3000 UNIT IV (08:32)
[2024-09-30] MEDS: AMLODIPINE 5MG TABLET 5 MG PO (08:32)
[2024-09-30] MEDS: SENNA 8.6MG TABLET 8.6 MG PO (08:32)
[2024-09-30] MEDS: POTASSIUM CHLORIDE 10MEQ TABLET.ER 10 MEQ PO (09:08)
--- NOTE | 2024-09-30 09:45 | P.CONS_ITS ---
History of Present Illness History of present illness: Mr. Farias is a 83-year-old male greater than 74-wbgh-vbxo smoking history last more than 15 years ago, poor historian presented to the ER with worsening respiratory distress. Patient admits he was told to have lung nodule around 5 years ago opted not to pursue any further workup, presented to the ER recently that showed large lung mass and loculated pleural effusions. Patient also admits continued worsening cough and respiratory symptoms. [facility] Disclaimer: The information contained in this section may have been updated after the patient was seen, as this information can be updated by other users. 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 Encounter for screening for lung cancer Nicotine dependence, cigarettes, with other nicotine-induced disorders Personal history of nicotine dependence HTN (hypertension) Skin tear of left forearm without complication Surgical History History of surgery on lower extremity History of cholecystectomy History of hernia repair Family History Other Family history of cancer Family history of diabetes mellitus Family history of heart disease Social History Smoking Status: Former smoker alcohol intake: never substance use type: denies use current occupational status: retired and other Travel in the last 8 weeks?: None household members: spouse housing: house Have you lived/traveled outside US in past 30 days?: No Contact w/someone who lives/traveled outside US past 30 days?: No Exposure to someone with infectious disease in past 14 days?: No Do you have a fever (greater than 100.4 F or 38 C)?: No Have you tested positive for COVID-19?: No Exposed to someone with COVID-19 in past 14 days?: No Do you have a sore throat?: No Do you have a cough?: No Do you have any weakness?: No Do you have any diarrhea?: No Are you experiencing any unusual bleeding?: No Do you have any muscle aches/pain?: No Do you have any abdominal pain?: No Are you experiencing loss of taste or smell?: No Review of Systems Constitutional Constitutional: Reports anorexia, Reports body ache(s) and Reports fatigue Eyes Eyes: Denies eye discharge, Denies dry eyes, Denies irritation and Denies itchy eyes ENT Ears, Nose, Mouth, and Throat: Denies epistaxis, Denies facial pain, Denies lip swelling and Denies throat swelling *Cardiovascular Cardiovascular: Reports dyspnea and Reports dyspnea on exertion *Respiratory Respiratory: Reports chest congestion, Reports cough, Reports dyspnea, Reports dyspnea on exertion, Reports excessive phlegm production, Denies hemoptysis, Denies pain on inspiration, Reports pain with cough and Reports wheezing *Gastrointestinal Gastrointestinal: Denies abdominal pain, Denies belching and Denies cramping *Musculoskeletal Musculoskeletal: Reports back pain, Reports myalgias and Reports other (No small joint swelling or Pain) *Neurologic Neurologic: Reports as per HPI Psychiatric Psychiatric: Denies homicidal ideation and Denies suicidal ideation Endocrine Endocrine: Reports fatigue and Denies heat intolerance Hematologic/Lymphatic Hematologic/Lymphatic: Denies easy bleeding and Denies lymphadenopathy Allergic/Immunologic Allergic/Immunologic: Denies itchy eyes, Denies lip swelling, Denies throat swelling and Reports wheezing Pulmonology Exam Inpatient Vital signs and Labs for Last 24 Hours: Temp Pulse Resp BP Pulse Ox O2 Del Method O2 Flow Rate 97.5 F L 106 H 24 177/90 H 94 L Room Air 2 09/30/24 08:00 09/30/24 08:00 09/30/24 08:00 09/30/24 08:00 09/30/24 08:00 09/30/24 08:00 09/30/24 08:00 Laboratory Results - last 24 hr 09/29/24 17:35: WBC 13.4 H, RBC 4.27 L, Hgb 12.9 L, Hct 39.0 L, MCV 91.3, MCH 30.2, MCHC 33.1, RDW 14.6, Plt Count 195, MPV 10.2, Neut % (Auto) 80.5 H, Lymph % (Auto) 7.8 L, [place] % (Auto) 8.1, Eos % (Auto) 1.9, Baso % (Auto) 0.4, Neut # (Auto) 10.8 H, Lymph # (Auto) 1.1, [place] # (Auto) 1.1 H, Eos # (Auto) 0.3, Baso # (Auto) 0.1, ESR 12, APTT 30.2 L, D-Dimer > 8.10 H, Sodium 137, Potassium 3.9, Chloride 105, Carbon Dioxide 27, Anion Gap 8.9, BUN 22 H, Creatinine 0.60 L, Estimated Creat Clear 62, Estimated GFR 129, Est GFR ( Amer) 156, Glucose 116 H, Calcium 8.2 L, Magnesium 2.0, Total Bilirubin 1.0, AST 26, ALT 13, Alkaline Phosphatase 126, Lactate Dehydrogenase 448, Troponin I < 0.01, C- Reactive Protein 43.8 H D, Total Protein 6.4, Albumin 3.4 L, Globulin 3.0, Albumin/Globulin Ratio 1.1, Procalcitonin 0.159 09/29/24 18:30: MRSA (PCR) Negative 09/29/24 20:49: APTT > 200.0 H* 09/29/24 22:31: APTT 141.2 H* 09/30/24 00:57: APTT 76.5 H* 09/30/24 05:49: WBC 12.1 H, RBC 4.28 L, Hgb 12.8 L, Hct 39.4 L, MCV 92.1, MCH 29.9, MCHC 32.5, RDW 14.5, Plt Count 164, MPV 10.4, Neut % (Auto) 77.6, Lymph % (Auto) 9.0 L, [place] % (Auto) 8.4, Eos % (Auto) 2.7, Baso % (Auto) 0.5, Neut # (Auto) 9.4 H, Lymph # (Auto) 1.1, [place] # (Auto) 1.0, Eos # (Auto) 0.3, Baso # (Auto) 0.1, APTT 44.4 L, Sodium 137, Potassium 3.9, Chloride 105, Carbon Dioxide 28, Anion Gap 7.9, BUN 18, Creatinine 0.70, Estimated Creat Clear 61, Estimated GFR 108, Est GFR ( Amer) 131, Glucose 100, Calcium 8.0 L, Magnesium 2.0, Total Bilirubin 1.3, AST 26, ALT 16, Alkaline Phosphatase 121, Total Protein 6.1 L, Albumin 3.3 L, Globulin 2.8, Albumin/Globulin Ratio 1.2, Triglycerides 81, C holesterol 130 L, LDL Cholesterol Direct 63.42 L, VLDL Cholesterol 16, HDL Cholesterol 42, Cholesterol/HDL Ratio 3.1 I & O for Labs for Last 24 Hours: Intake & Output 09/27/24 09/28/24 09/29/24 09/30/24 23:59 23:59 23:59 23:59 Intake Total 497.65 / 987.65 1027.048 / 1027.048 Output Total 0 / 0 150 / 150 Balance 497.65 / 987.65 877.048 / 877.048 Weight 168 lb 165 lb 3.184 oz Constitutional: Present moderate distress Head: Present normocephalic and atraumatic ENT: Present normal exam, normal oropharynx and mucous membranes moist Neck: Present normal inspection and full ROM Respiratory: Present prolonged expiratory phase, rhonchi, wheezes, diminished air movement and able to speak in complete sentences Cardiac: Present S1/S2, Tachycardia and radial pulses present GI: Present soft and distention; Absent tenderness or guarding Skin: Present intact; Absent cyanosis or jaundice Neuro: Present alert, awake and oriented x 3 Extremities: Present normal inspection; Absent clubbing or cyanosis Psychiatric: Present normal affect and cooperative Meds Home Medications and Allergies Home Medications ?Medication ?Instructions ?Recorded ?Confirmed ?Type amlodipine 5 mg tablet 5 mg PO DAILY #30 tabs 09/1709/29/24 Rx albuterol sulfate 90 mcg/actuation 2 puff inhalation Q 4HP PRN 09/30/24 09/30/24 History aerosol inhaler shortness of breath or wheez ing apixaban 5 mg (74 tabs) tablets in 5 mg PO DIRECTED 09/30/24 09/30/24 History a dose pack (Eliquis DVT-PE Treat 30D Start) cefdinir 300 mg capsule 300 mg PO BID 09/30/2409/30 History doxycycline hyclate 100 mg capsule 100 mg PO BID 09/3009/30/24 History lisinopril 20 mg tablet 20 mg PO DAILY 09/30/2409/06 History oxycodone 5 mg tablet 5 mg PO Q6HP PRN Moderate Pa in 09/30/24 09/30/24 History (Scale Score 5-6) New Prescriptions to Start Prescriptions: Allergies Allergy/AdvReac Type Severity Reaction Status Date / Time No Known Allergies Allergy Verified 09/29/24 14:01 Results Laboratory Findings 09/30/24 05:49 09/30/24 05:49 PT/INR, D-dimer D-Dimer > 8.10 ug/mL (0.0-0.5) H 09/29/24 17:35 Abnormal lab findings: Abnormal Labs 09/29/24 09/29/24 09/29/24 17:35 20:49 22:31 WBC 13.4 H RBC 4.27 L Hgb 12.9 L Hct 39.0 L Neut % (Auto) 80.5 H Lymph % (Auto) 7.8 L Neut # (Auto) 10.8 H [place] # (Auto) 1.1 H APTT 30.2 L > 200.0 H* 141.2 H* D-Dimer > 8.10 H BUN 22 H Creatinine 0.60 L Glucose 116 H Calcium 8.2 L C-Reactive Protein 43.8 H D Total Protein Albumin 3.4 L Cholesterol LDL Cholesterol Direct 09/30/24 09/30/24 00:57 05:49 WBC 12.1 H RBC 4.28 L Hgb 12.8 L Hct 39.4 L Neut % (Auto) Lymph % (Auto) 9.0 L Neut # (Auto) 9.4 H [place] # (Auto) APTT 76.5 H* 44.4 L D-Dimer BUN Creatinine Glucose Calcium 8.0 L C-Reactive Protein Total Protein 6.1 L Albumin 3.3 L Cholesterol 130 L LDL Cholesterol Direct 63.42 L Assessment and Plan *Assessment and plan (1) Pleural effusion: Status: Acute Category: Medical Code(s): J90 - Pleural effusion, not elsewhere classified (2) Lung mass: Status: Acute Category: Medical Code(s): R91.8 - Other nonspecific abnormal finding of lung field (3) Loculated pleural effusion: Status: Acute Category: Medical Code(s): J90 - Pleural effusion, not elsewhere classified Plan Mr. Farias is a 83-year-old male greater than 56-dums-zifa smoking history last more than 15 years ago, poor historian presented to the ER with worsening respiratory distress. Patient admits he was told to have lung nodule around 5 years ago opted not to pursue any further workup, presented to the ER recently that showed large lung mass and loculated pleural effusions. Patient also admits continued worsening cough and respiratory symptoms. Afebrile. Hemodynamically stable. Mild neutrophilic predominant leukocytosis. Patient was recently seen in the hospital for respiratory distress discharged home on cefdinir and doxycycline for postobstructive pneumonia and also on Eliquis for the noted pulmonary embolism CTA PE protocol 09/27/2024 large left upper lobe mass, with adjacent moderate left loculated pleural effusion. Hilar and mediastinal lymphadenopathy. Also noted to have filling defect in right pulmonary artery and azygous vein consistent with thrombosis. Splenic mass and other mediastinal mass also noted. Overall the findings are consistent with malignancy. No recent prior imaging is available for comparison. Extensively discussed with the patient regarding the plan of care with respect to needed thoracentesis and possible biopsy to further diagnosis and plan of care management. Patient expresses complete understanding and associated morbidity and mortality associated with not pursuing diagnosis via lung biopsy at this point of time. He agreed to undergo thoracentesis for symptom improvement. I have also explained the patient given the possibility of hospital stay for 2 to 3 days with possible chest tube placement and tPA dornase if noted to have possible loculated effusion. Patient also agreed to have hospice consult upon discharge. Plan: Proceed with thoracentesis Currently on heparin drip, hold heparin for the procedure DuoNebs 4 times daily scheduled Continue vancomycin and Zosyn pending sputum culture results of pleural fluid culture results
[2024-09-30] MEDS: HEPARIN 25,000 UNITS/D5W 500 ML 20 UNIT IV (10:53)
--- NOTE | 2024-09-30 11:52 | HMH.PHAINT1 ---
Pharmacy Intervention Comments: MEDICATION RECONCILIATION COMPLETED ON PATIENT USING EXTERNAL FILL HISTORY FROM PHARMACY AND LIST FROM PCP OFFICE. -BRET YBARRA, OUMARD
--- NOTE | 2024-09-30 12:00 | US_ITS ---
FINAL REPORT CLINICAL HISTORY: Effusion loculated LT -- Lt thoracentesis -- dr augie delvalle -- 810 ml FINDINGS: ULTRASOUND GUIDANCE FOR THORACENTESIS: Ultrasound guidance was performed prior to thoracentesis. A region of pleural fluid identified as being located in the left chest was localized under ultrasound guidance. The thoracentesis was performed by Dr. Delvalle, and 810 mL of pleural fluid was withdrawn. IMPRESSION: Region of pleural fluid localized under ultrasound guidance for prior to Dr. Delvalle performing thoracentesis. Reviewed, Interpreted and Dictated by Dorys Veras MD Transcribed by Renee Potter Authenticated and [facility]
--- NOTE | 2024-09-30 13:12 | XR_ITS ---
FINAL REPORT TECHNIQUE: Single view chest CLINICAL HISTORY: post thoracentesis left side COMPARISON: 09/29/2024 FINDINGS: A single view of the chest was obtained. The heart is mildly enlarged. There is a left upper lobe masslike opacity. There is been slight improvement in left pleural effusion and left lower lung opacity. No pneumothorax is seen. IMPRESSION: Slight improvement of left pleural effusion and left lower lung opacity. No pneumothorax. Reviewed, Interpreted and Dictated by Dorys Veras MD Transcribed by Sadia Chase Authenticated and . [facility]
--- NOTE | 2024-09-30 13:12 | P.PCN_ITS ---
[facility] Procedure Note Date: 09/30/24 Time: 13:12 Procedure Note:: Procedure:Left Thoracentesis Indication for procedure: Pleural Effusion, Hypoxic Respiratory failure A time out was performed, and the chest x-ray was reviewed, the appropriate side was confirmed and marked. My hands were washed immediately prior to the procedure. I wore a surgical cap, mask with protective eyewear, sterile gown, and sterile gloves throughout the procedure. The patient was prepped and draped in a sterile manner using chlorhexidine scrub after the appropriate level was percussed and confirmed by ultrasound. 1% lidocaine was used to anesthetize the skin, subcutaneous tissue, superior aspect of the rib periosteum and parietal pleura. Upon ultrasound examination the fluid appeared to be loculated. Large pocket was noted that can be accessed posterolaterally. A finder needle was then introduced at the seventh intercoastal space posterio laterally to locate the pleural fluid blood-tinged fluid was aspirated. A 10- blade scalpel was used to sidney the skin at the insertion site. The Aafa-v-Efvvx sis needle was then introduced through the skin incision into the pleural space using negative aspiration pressure and the red colorimetric indicator to confirm appropriate positioning of the needle. The thoracentesis catheter was then threaded without difficulty. 810 ml of fluid was removed without difficulty. The catheter was then removed. No immediate complications were noted during the procedure. A post-procedure chest X-ray is pending at the time of this note. The fluid will be sent for routine pleural studies, cultures along with cytopathology. Patient tolerated the procedure well Estimated blood loss is 2cc.
[2024-09-30 13:39] LABS: Appearance,Body Fld. Cloudy; Source, Body Fld. Thoracentesis Fluid; Volume,Body Fld. 810 mL
--- NOTE | 2024-09-30 13:42 | HMH.PHAHEP ---
[facility] Heparin Dosing Demographic Data Admission date:: 09/29/24 Date: 09/30/24 Time: 13:43 Allergies Allergy/AdvReac Type Severity Reaction Status Date / Time No Known Allergies Allergy Verified 09/29/24 14:01 Height: 1.85 m Weight: 74.933 kg Comments:: DR DELVALLE WANTS HEPARIN DRIP RESTARTED 09/30/24 AT 15:00. 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 Labs Anticoagulation Lab Results:: 09/29/24 09/30/24 17:35 05:49 Hgb 12.9 L 12.8 L Hct 39.0 L 39.4 L Plt Count 195 164 Monitoring Dose Monitor 6: Date: 09/30/24 Time: 15:00 PTT Result:: NO PTT, DRIP RESUMED AFTER BEING HELD FOR THORACENTESIS BY DR DELVALLE. Infusion Rate:: RECOMMEND RESUMING HEPARIN DRIP AT PREVIOUS RATE OF 1000 UNITS/HOUR = 20 ML/HR AND BOLUSING 6000 UNITS HEPARIN IV ONCE. Dose Monitor 7: Date: 09/30/24 Time: 18:00 PTT Result:: 74.2 Seconds Infusion Rate:: [place] RECOMMENDED CONTINUING CURRENT HEPARIN DRIP RATE OF 1000 UNITS/HOUR = 20 ML/HOUR Dose Monitor 8: Date: 10/01/24 Time: 01:00 PTT Result:: 50.1 SECONDS Infusion Rate:: [place]ER[place] RECOMMENDED CONTINUING CURRENT HEPARIN DRIP RATE OF 1000 UNITS/HOUR = 20 ML/HOUR Dose Monitor 9: Date: 10/01/24 Time: 08:00 PTT Result:: 47.2 SECONDS Infusion Rate:: RECOMMEND INCREASING HEPARIN DRIP TO 1150 UNITS/HOUR = 23 ML/HOUR AND BOLUSING 3000 UNITS HEPARIN IV ONCE. Comment:: PLATELET COUNT = 145,000 Core Measures Is INR > or = 2 at discharge?: No Most Recent Labs:: Laboratory Results - last 24 hr 09/29/24 17:35: WBC 13.4 H, RBC 4.27 L, Hgb 12.9 L, Hct 39.0 L, MCV 91.3, MCH 30.2, MCHC 33.1, RDW 14.6, Plt Count 195, MPV 10.2, Neut % (Auto) 80.5 H, Lymph % (Auto) 7.8 L, [place] % (Auto) 8.1, Eos % (Auto) 1.9, Baso % (Auto) 0.4, Neut # (Auto) 10.8 H, Lymph # (Auto) 1.1, [place] # (Auto) 1.1 H, Eos # (Auto) 0.3, Baso # (Auto) 0.1, ESR 12, APTT 30.2 L, D-Dimer > 8.10 H, Sodium 137, Potassium 3.9, Chloride 105, Carbon Dioxide 27, Anion Gap 8.9, BUN 22 H, Creatinine 0.60 L, Estimated Creat Clear 62, Estimated GFR 129, Est GFR ( Amer) 156, Glucose 116 H, Calcium 8.2 L, Magnesium 2.0, Total Bilirubin 1.0, AST 26, ALT 13, Alkaline Phosphatase 126, Lactate Dehydrogenase 448, Troponin I < 0.01, C-Reactive Protein 43.8 H D, Total Protein 6.4, Albumin 3.4 L, Globulin 3.0, Albumin/Globulin Ratio 1.1, Procalcitonin 0.159 09/29/24 18:30: MRSA (PCR) Negative 09/29/24 20:49: APTT > 200.0 H* 09/29/24 22:31: APTT 141.2 H* 09/30/24 00:57: APTT 76.5 H* 09/30/24 05:49: WBC 12.1 H, RBC 4.28 L, Hgb 12.8 L, Hct 39.4 L, MCV 92.1, MCH 29.9, MCHC 32.5, RDW 14.5, Plt Count 164, MPV 10.4, Neut % (Auto) 77.6, Lymph % (Auto) 9.0 L, [place] % (Auto) 8.4, Eos % (Auto) 2.7, Baso % (Auto) 0.5, Neut # (Auto) 9.4 H, Lymph # (Auto) 1.1, [place] # (Auto) 1.0, Eos # (Auto) 0.3, Baso # (Auto) 0.1, APTT 44.4 L, Sodium 137, Potassium 3.9, Chloride 105, Carbon Dioxide 28, Anion Gap 7.9, BUN 18, Creatinine 0.70, Estimated Creat Clear 61, Estimated GFR 108, Est GFR ( Amer) 131, Glucose 100, Calcium 8.0 L, Magnesium 2.0, Total Bilirubin 1.3, AST 26, ALT 16, Alkaline Phosphatase 121, Lactate Dehydrogenase 471, Total Protein 6.1 L, Albumin 3.3 L, Globulin 2.8, Albumin/Globulin Ratio 1.2, Triglycerides 81, Cholesterol 130 L, LDL Cholesterol Direct 63.42 L, VLDL Cholesterol 16, HDL Cholesterol 42, Cholesterol/HDL Ratio 3.1 09/30/24 13:00: Fluid Source Thoracentesis fluid, Fluid Volume 810, Fluid Appearance Cloudy If INR was < than 2.0 why was therapy stopped?: PATIENT D/C HOME ON [facility] Were Heparin and Warfarin started on the same day?: No If not, why?: PATIENT D/C HOME ON [facility]
[2024-09-30 13:44] LABS: RBC,Body Fluid 8000 cells/uL (< 10 X 10^3); TNC,Body Fluid 964 cells/uL (< 1000)
--- NOTE | 2024-09-30 14:07 | SW/DCPLANNER ---
Addendum entered by Richelle Roland RN 10/01/24 12:31: Patient discharging home today, and will admitted to hospice once home. Portable O2 has been delivered to patient's room. Original Note: Faxed patient's information to [facility]. Will update when i hear if they can accept the patient. Simona Soares
--- OUTSIDE RECORDS SUMMARY | 2024-09-30 14:35 | XMS_ITS | Clinical Summary ---
Author Organization [facility] Address [address] [place] [address] Care Team Providers Care Gallery Assistant Name Role Phone Grupo Jordan MD Primary Care Provider + [phone] Allergies No known active allergies Medications lisinopril [...] place to sleep or slept in a assisted (including now)? No 08/13/2023 CAGE ASSESSMENT Answer [...] drink first t ty in the morning ([employer]ULK [employer]IVER) to steady your nerves or to get rid of a hangover? 0 08/13/2023 CAGE Questionnaire Score 0 024 Utilities Answer Date Recorded In the past 12 months has th [employer] gas, oil, or water company threatened to [...] r (1 - 1-dose 75+ series) 2017 [id number] Vaccine ( - 20 24-25 season) 2023 [...] to complete this topic Insurance [address] [place] [address] [employer] [place] Advance Directives * Full Code (Latest Code Status on File) Date Activated Date Inactivated Comments 08/13/2023 5:47 AM 08/17/2023 5:07 PM Question Answer Comments Patient has decision-making capacity? Yes Care Teams Gallery Assistant Relationship Specialty Start Date End Date Grupo Jordan MD [address] [place] [address] PCP - General 06/18/20
[2024-09-30] MEDS: HEPARIN SODIUM 5,000 UNIT/ML VIAL 6000 UNIT IV (15:03)
[2024-09-30] MEDS: HEPARIN SODIUM,PORCINE/D5W 500 ML 20 UNIT IV (15:07)
[2024-09-30] MEDS: VANCOMYCIN/WATER FOR INJ (PEG) 1.25 GM/250 ML PIGGYBACK IV (15:27)
[2024-09-30 15:47] LABS: Mononuclear WBCs,Body Fluid 91 %; Polynuclear WBC,Body Fluid 9 %
[2024-09-30 16:00] VITALS: BP 168/82; PULSE 100; RESP 19; TEMP 36.5; O2SAT 96
[2024-09-30] MEDS: OXYCODONE 5MG W/APAP 325MG TABLET 1 EACH PO (17:49)
--- NOTE | 2024-09-30 18:10 | PC.NURSE ---
pt resting in bed with call light in reach 02@ 2L
[2024-09-30] MEDS: IPRATROPIUM/ALBUTEROL 3 ML NEB IH (18:16)
[2024-09-30 18:17] VITALS: PULSE 100; PULSE 104; O2SAT 97
[2024-09-30 18:48] LABS: PTT Heparin (inpatient only) 74.2 Seconds (50-75)
--- NOTE | 2024-09-30 19:00 | PC.NURSE ---
PTT is within range per reconciliation specialist pharmacy. They will put in order for new PTT.
[2024-09-30 20:00] VITALS: BP 150/82; PULSE 100; RESP 16; TEMP 36.4; O2SAT 94
--- NOTE | 2024-09-30 22:37 | P.PN_ITS ---
Subjective *Date: 10/12/24 *Time: 23:23 Interval history: Patient is doing better after thoracentesis this morning. Wants to pursue hospice care. Exam Data for Last 24 hours Vital signs and Labs for Last 24 Hours: Temp Pulse Resp BP Pulse Ox O2 Del Method O2 Flow Rate 97.6 F 100 H 16 150/82 H 94 L Room Air 2 09/30/24 20:00 09/30/24 20:00 09/30/24 20:00 09/30/24 20:00 09/30/24 20:00 09/30/24 20:00 09/30/24 18:17 Laboratory Results - last 24 hr 09/29/24 18:30: MRSA (PCR) Negative 09/29/24 22:31: APTT 141.2 H* 09/30/24 00:57: APTT 76.5 H* 09/30/24 05:49: WBC 12.1 H, RBC 4.28 L, Hgb 12.8 L, Hct 39.4 L, MCV 92.1, MCH 29.9, MCHC 32.5, RDW 14.5, Plt Count 164, MPV 10.4, Neut % (Auto) 77.6, Lymph % (Auto) 9.0 L, [place] % (Auto) 8.4, Eos % (Auto) 2.7, Baso % (Auto) 0.5, Neut # (Auto) 9.4 H, Lymph # (Auto) 1.1, [place] # (Auto) 1.0, Eos # (Auto) 0.3, Baso # ( Auto) 0.1, APTT 44.4 L, Sodium 137, Potassium 3.9, Chloride 105, Carbon Dioxide 28, Anion Gap 7.9, BUN 18, Creatinine 0.70, Estimated Creat Clear 61, Estimated GFR 108, Est GFR ( Amer) 131, Glucose 100, Calcium 8.0 L, Magnesium 2.0, Total Bilirubin 1.3, AST 26, ALT 16, Alkaline Phosphatase 121, Lactate Dehydrogenase 471, Total Protein 6.1 L, Albumin 3.3 L, Globulin 2.8, Albumin/Globulin Ratio 1.2, Triglycerides 81, Cholesterol 130 L, LDL Cholesterol Direct 63.42 L, VLDL Cholesterol 16, HDL Cholesterol 42, Cholesterol/HDL Ratio 3.1 09/30/24 13:00: Fluid Source Thoracentesis fluid, Fluid Volume 810, Fluid Appearance Cloudy, Fluid RBC (Auto) 8000, Fld Tot Nucleated Cell 964, Fld Polynuclear WBCs % 9, Fld Mononuclear WBCs % 91 09/30/24 18:11: APTT 74.2 I & O for Last 24 hours: Intake & Output 09/27/24 09/28/24 09/29/24 09/30/24 23:59 23:59 23:59 23:59 Intake Total 497.65 / 987.65 1567.048 / 1567.048 Output Total 0 / 0 150 / 150 Balance 497.65 / 987.65 1417.048 / 1417.048 Weight 76.204 kg 74.933 kg Microbiology Reports for the Last 24 Hours: Microbiology 09/29/24 17:35 Blood Blood Culture - Preliminary NO GROWTH AFTER 24 HOURS 09/29/24 17:35 Blood Blood Culture - Preliminary NO GROWTH AFTER 24 HOURS 09/30/24 13:00 Pleural Fluid Gram Stain - Final 09/30/24 09:50 Sputum - Expectorated Sputum Gram Stain - Final Constitutional Constitutional: no acute distress and chronically ill appearing *Routine HEENT Exam Head: Present normocephalic Eye: Present EOMI and PERRL ENT: Present mucous membranes moist *Routine Neck Exam Neck: Present supple; Absent lymphadenopathy *Routine Respiratory Exam Respiratory: Present CTA bilaterally *Routine Cardiovascular Exam Cardiovascular: Present RRR *Routine Abdominal Exam Abdominal: Present soft and normoactive bowel sounds; Absent tenderness *Routine Extremities Exam Extremities: Absent cyanosis, clubbing or edema *Routine Skin Exam Skin: Present warm; Absent rash *Routine Neurological Exam Neurological: Present alert and oriented X3 Assessment and Plan *Assessment and plan (1) Loculated pleural effusion: Status: Acute Category: Medical Code(s): J90 - Pleural effusion, not elsewhere classified Plan Benny Farias is an 83-year-old male who presented as a direct admission from PCP due to shortness of breath, metastatic lung cancer, pulmonary embolism, pneumonia with associated effusion and admitted for the same. #Suspected metastatic lung cancer #Pulmonary embolism #Sepsis #Community-acquired pneumonia #Large loculated pleural effusion ? Presented as a direct admit from PCP due to worsening shortness of breath. ? CTA chest on 09/27/2024 revealed complex left lung mass measuring 8 x 6.6 x 6.7 cm, large associated loculated pleural effusion, in addition to other likely metastatic lesions in the spleen, mediastinum. Also revealed left upper lobe and lingula pneumonia. Additionally, also revealed filling defect in the right descending pulmonary artery. Patient was advised admission from the ED on that day but patient refused and preferred to follow-up with his PCP. However, patient had worsening shortness of breath. ? ECHO 09/29/2024 did not show RV strain. ? Continue vancomycin, Zosyn. Follow-up sputum, blood cultures. ? Continue therapeutic Lovenox. ? Extensive conversation with the patient today, patient wants to pursue hospice care for cancer. He does not want biopsy of his lesion. ? Pulmonology consulted, s/p palliative paracentesis with 810 mL. ? Follow-up pleural fluid studies. #Hypertension ? Continue home amlodipine, lisinopril once appropriate. #COPD ? DuoNebs as needed. Therapeutic Lovenox for DVT prophylaxis
[2024-10-01] VITALS: BP 146/85; PULSE 95; RESP 14; TEMP 36.4; O2SAT 95
[2024-10-01] MEDS: OXYCODONE 5MG W/APAP 325MG TABLET 1 EACH PO (00:05)
[2024-10-01] MEDS: HEPARIN SODIUM,PORCINE/D5W 500 ML 20 UNIT IV (01:05)
[2024-10-01] MEDS: PIPERCILLIN/TAZO 3.375 GM in 0.9 % SODIUM CHLORIDE 50 ML IV ×2 (01:08→08:36)
[2024-10-01 01:31] LABS: PTT Heparin (inpatient only) 50.1 Seconds (50-75)
[2024-10-01 04:00] VITALS: BP 162/80; PULSE 91; RESP 18; TEMP 36.7; O2SAT 96; BMI 21.9
--- NOTE | 2024-10-01 05:00 | PC.NURSE ---
Patient is alert and oriented x4. He is hard of hearing, uses bilateral hearing aids. He was observed to have eyes closed, respirations even and unlabored on 2 L of oxygen via nasal cannula, and no apparent distress throughout the majority of the night. Family member remained at bedside. Oxygen saturations > 90%. Breathing treatments scheduled. He complained once of moderate pain located to his left shoulder (particularly to the previous thoracentesis site); Percocet 5 was administered per MAR for pain relief. Thoracentesis site near left scapula remains dressed (clean, dry, and intact). Scheduled medications were administered per MAR. Heparin drip continues to infuse at 1,000 units/hr (20 mL/hr); no changes were needed to be made to the rate per overnight pharmacy. Last APTT (10/01/24, at 01:06) was 50.1. Scattered audible wheezing, diminished lung sounds heard throughout. Patient gets up with assistance during ambulation. Urinal at bedside for urination needs. At this time, the patient is resting in bed without any further complaints. No acute changes noted. Call light within reach.
[2024-10-01 05:50] VITALS: PULSE 80; PULSE 82; O2SAT 95
[2024-10-01] MEDS: IPRATROPIUM/ALBUTEROL 3 ML NEB IH ×2 (05:50→13:14)
[2024-10-01 06:49] LABS: Albumin Level 2.9 g/dl (3.5-5.0); Chloride 107 mmol/L (98-107); Hematocrit 37.3 % (42.0-52.0); Hemoglobin 12.3 g/dL (14.1-18.0); Immature Granulocytes % 1.8 %; Mean Corpuscular HGB Conc 33.0 g/dL (31.8-35.4); Mean Corpuscular Hemoglobin 30.3 pg (27.0-31.2); Mean Corpuscular Volume 91.9 fl (80-94); Nucleated Red Blood Cells % 0 %; Platelet Count 145 K/mm3 (142-424); Potassium 3.8 mmoL/L (3.5-5.1); Red Blood Count 4.06 M/mm3 (4.60-6.20); Red Cell Distribution Width-SD 49.4 fL; Sodium 137 mmol/L (136-145); White Blood Count 12.0 K/mm3 (4.8-10.8)
[2024-10-01 06:51] LABS: Blood Urea Nitrogen 18 mg/dl (9-20); Creatinine Clearance Estimated 61 mL/min (50-200); Creatinine,Serum 0.60 mg/dl (0.66-1.25); Estimated Glomerular Filt Rate 129 ml/min (>60); GFR (African American) 156 ML/MIN (>60)
[2024-10-01 06:52] LABS: Alanine Aminotransferase 14 U/L (12-78); Albumin/Globulin Ratio 1.1 (1.1-1.8); Alkaline Phosphatase 104 U/L (38-126); Anion Gap 6.8 mEq/L (5-15); Aspartate Amino Transferase 24 U/L (17-59); Bilirubin,Total 0.9 mg/dl (0.2-1.3); Calcium 7.7 mg/dl (8.4-10.2); Carbon Dioxide 27 mmol/L (22.0-30.0); Globulin 2.7 g/dL (1.3-3.2); Glucose 94 mg/dl (74-100); Magnesium 2.1 mg/dl (1.6-2.3); Total Protein,Serum 5.6 g/dl (6.3-8.2)
[2024-10-01 07:26] VITALS: BP 177/82; PULSE 63; RESP 18; TEMP 36.8; O2SAT 92
[2024-10-01] MEDS: POTASSIUM CHLORIDE 10MEQ TABLET.ER 10 MEQ PO (08:36)
[2024-10-01] MEDS: SENNA 8.6MG TABLET 8.6 MG PO (08:36)
[2024-10-01] MEDS: AMLODIPINE 5MG TABLET 5 MG PO (08:36)
[2024-10-01 09:04] LABS: PTT Heparin (inpatient only) 47.2 Seconds (50-75)
[2024-10-01] MEDS: VANCOMYCIN/WATER FOR INJ (PEG) 1.25 GM/250 ML PIGGYBACK IV (09:41)
[2024-10-01] MEDS: HEPARIN SODIUM 5,000 UNIT/ML VIAL 3000 UNIT IV (09:42)
--- NOTE | 2024-10-01 09:43 | PC.NURSE ---
Heparin increased to 1150 units, used same bag hanging
--- NOTE | 2024-10-01 09:50 | PC.NURSE ---
Pt is 91% on RA at rest
[2024-10-01 11:45] VITALS: BP 167/80; PULSE 95; RESP 18; TEMP 36.4; O2SAT 94
--- NOTE | 2024-10-01 11:57 | P.DS_ITS ---
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 Patient has been noted here in the recent past of having a pleural effusion left lung but began to have significant shoulder pain mid back pain with an increase in the amount of fluid in the left lung.. Patient has come to the hospital decision has been made to fied a thoracentesis to the left lung tomorrow to see if this will provide him any comfort. Patient is noted as being extremely hard of hearing. His 2 daughters are with him which then also was able to give me some extra history upon the patient.. Patient's only complaint at this time is the pain is resolved but he feels like he is constipated. Patient is presently upon antibiotics also. And will be seen in the morning by pulmonology. Hospital Course Hospital Course Hospital Course: Benny Farias is an 83-year-old male who presented as a direct admission from PCP due to shortness of breath, metastatic lung cancer, pulmonary embolism, pneumonia with associated effusion and admitted for the same. #Suspected metastatic lung cancer #Pulmonary embolism #Sepsis #Community-acquired pneumonia #Large loculated pleural effusion ? Presented as a direct admit from PCP due to worsening shortness of breath. ? CTA chest on 09/27/2024 revealed complex left lung mass measuring 8 x 6.6 x 6.7 cm, large associated loculated pleural effusion, in addition to other likely metastatic lesions in the spleen, mediastinum. Also revealed left upper lobe and lingula pneumonia. Additionally, also revealed filling defect in the right descending pulmonary artery. Patient was advised admission from the ED on that day but patient refused and preferred to follow-up with his PCP. However, patient had worsening shortness of breath. ? ECHO 09/29/2024 did not show RV strain. ? Extensive conversation with the patient today, patient wants to pursue hospice care for cancer. He does not want biopsy of his lesion. ? Pulmonology consulted, s/p palliative paracentesis with 810 mL. ? Treated empirically with vancomycin, Zosyn. Blood, pleural cultures unremarkable. ? Discharged with home hospice on levofloxacin 750 mg daily for 5 more days for pneumonia, Eliquis starter pack for pulmonary embolism (10 mg twice daily for 7 days, then 5 mg twice daily). #Hypertension ? Continue home amlodipine, lisinopril. #COPD ? Continue home albuterol as needed Total time spent on discharge: 31 minutes on chart review, counseling, documentation, and direct care with patient. Exam Data for Last 24 hours Vital signs and Labs for Last 24 Hours: Temp Pulse Resp BP Pulse Ox O2 Del Method O2 Flow Rate 97.6 F 95 H 18 167/80 H 94 L Nasal Cannula 2 10/01/24 11:45 10/01/24 11:45 10/01/24 11:45 10/01/24 11:45 10/01/24 11:45 10/01/24 11:45 10/01/24 11:45 Laboratory Results - last 24 hr 09/30/24 05:49: Lactate Dehydrogenase 471 09/30/24 13:00: Fluid Source Thoracentesis fluid, Fluid Volume 810, Fluid Appearance Cloudy, Fluid RBC (Auto) 8000, Fld Tot Nucleated Cell 964, Fld Polynuclear WBCs % 9, Fld Mononuclear WBCs % 91 09/30/24 18:11: APTT 74.2 10/01/24 01:06: APTT 50.1 10/01/24 05:38: WBC 12.0 H, RBC 4.06 L, Hgb 12.3 L, Hct 37.3 L, MCV 91.9, MCH 30.3, MCHC 33.0, RDW 14.7, Plt Count 145, MPV 10.8 H, Neut % (Auto) 75.2, Lymph % (Auto) 9.8 L, [place] % (Auto) 9.2, Eos % (Auto) 3.4, Baso % (Auto) 0.6, Neut # (Auto) 9.0 H, Lymph # (Auto) 1.2, [place] # (Auto) 1.1 H, Eos # (Auto) 0.4, Baso # (Auto) 0.1, Sodium 137, Potassium 3.8, Chloride 107, Carbon Dioxide 27, Anion Gap 6.8, BUN 18, Creatinine 0.60 L, Estimated Creat Clear 61, Estimated GFR 129, Est GFR ( Amer) 156, Glucose 94, Calcium 7.7 L, Magnesium 2.1, Total Bilirubin 0.9, AST 24, ALT 14, Alkaline Phosphatase 104, Total Protein 5.6 L, Albumin 2.9 L D, Globulin 2.7, Albumin/Globulin Ratio 1.1 10/01/24 08:20: APTT 47.2 L I & O for Last 24 hours: Intake & Output 09/28/24 09/29/24 09/30/24 10/01/24 23:59 23:59 23:59 23:59 Intake Total 497.65 / 987.65 1567.048 / 1867.048 839.333 / 839.333 Output Total 0 / 0 400 / 650 850 / 850 Balance 497.65 / 987.65 1167.048 / 1217.048 -10.667 / -10.667 Weight 76.204 kg 74.933 kg 74.979 kg Microbiology Reports for the Last 24 Hours: Microbiology 09/30/24 09:50 Sputum - Expectorated Sputum Gram Stain - Final 09/30/24 09:50 Sputum - Expectorated Sputum Sputum Culture - Preliminary 09/29/24 17:35 Blood Blood Culture - Preliminary NO GROWTH AFTER 24 HOURS 09/29/24 17:35 Blood Blood Culture - Preliminary NO GROWTH AFTER 24 HOURS 09/30/24 13:00 Pleural Fluid Gram Stain - Final Constitutional Constitutional: no acute distress and chronically ill appearing *Routine HEENT Exam Head: Present normocephalic Eye: Present EOMI and PERRL ENT: Present mucous membranes moist *Routine Neck Exam Neck: Present supple; Absent lymphadenopathy *Routine Respiratory Exam Respiratory: Absent CTA bilaterally Comments: Decreased left-sided breath sounds *Routine Cardiovascular Exam Cardiovascular: Present RRR *Routine Abdominal Exam Abdominal: Present soft and normoactive bowel sounds; Absent tenderness *Routine Extremities Exam Extremities: Absent cyanosis, clubbing or edema *Routine Skin Exam Skin: Present warm; Absent rash *Routine Neurological Exam Neurological: Present alert and oriented X3 Results Data Completed and Pending Labs on day of discharge: Labs from last 24 hours 10/01/24 10/01/24 10/01/24 08:20 05:38 01:06 WBC 12.0 H RBC 4.06 L Hgb 12.3 L Hct 37.3 L MCV 91.9 MCH 30.3 MCHC 33.0 RDW 14.7 Plt Count 145 MPV 10.8 H Neut % (Auto) 75.2 Lymph % (Auto) 9.8 L [place] % (Auto) 9.2 Eos % (Auto) 3.4 Baso % (Auto) 0.6 Neut # (Auto) 9.0 H Lymph # (Auto) 1.2 [place] # (Auto) 1.1 H Eos # (Auto) 0.4 Baso # (Auto) 0.1 APTT 47.2 L 50.1 Sodium 137 Potassium 3.8 Chloride 107 Carbon Dioxide 27 Anion Gap 6.8 BUN 18 Creatinine 0.60 L Estimated Creat Clear 61 Estimated GFR 129 Est GFR ( Amer) 156 Glucose 94 Calcium 7.7 L Magnesium 2.1 Total Bilirubin 0.9 AST 24 ALT 14 Alkaline Phosphatase 104 Lactate Dehydrogenase Total Protein 5.6 L Albumin 2.9 L D Globulin 2.7 Albumin/Globulin Ratio 1.1 Fluid Source Fluid Volume Fluid Appearance Fluid RBC (Auto) Fld Tot Nucleated Cell Fld Polynuclear WBCs % Fld Mononuclear WBCs % 09/30/24 09/30/24 09/30/24 18:11 13:00 05:49 WBC RBC Hgb Hct MCV MCH MCHC RDW Plt Count MPV Neut % (Auto) Lymph % (Auto) [place] % (Auto) Eos % (Auto) Baso % (Auto) Neut # (Auto) Lymph # (Auto) [place] # (Auto) Eos # (Auto) Baso # (Auto) APTT 74.2 Sodium Potassium Chloride Carbon Dioxide Anion Gap BUN Creatinine Estimated Creat Clear Estimated GFR Est GFR ( Amer) Glucose Calcium Magnesium Total Bilirubin AST ALT Alkaline Phosphatase Lactate Dehydrogenase 471 Total Protein Albumin Globulin Albumin/Globulin Ratio Fluid Source Thoracentesis fluid Fluid Volume 810 Fluid Appearance Cloudy Fluid RBC (Auto) 8000 Fld Tot Nucleated Cell 964 Fld Polynuclear WBCs % 9 Fld Mononuclear WBCs % 91 Preliminary micro results at discharge 09/30/24 09:50 Sputum Culture - Preliminary Sputum - Expectorated Sputum 09/29/24 17:35 Blood Culture - Preliminary Blood NO GROWTH AFTER 24 HOURS 09/29/24 17:35 Blood Culture - Preliminary Blood NO GROWTH AFTER 24 HOURS DS: Diagnosis Discharge Diagnosis (1) Pleural effusion: Status: Acute Code(s): J90 - Pleural effusion, not elsewhere classified (2) Lung mass: Status: Acute Code(s): R91.8 - Other nonspecific abnormal finding of lung field (3) Loculated pleural effusion: Status: Acute Code(s): J90 - Pleural effusion, not elsewhere classified Meds Home Medications and Allergies Home Medications ?Medication ?Instructions ?Recorded ?Confirmed ?Type amlodipine 5 mg tablet 5 mg PO DAILY #30 tabs 09/1709/29/24 Rx albuterol sulfate 90 mcg/actuation 2 puff inhalation Q 4HP PRN 09/30/24 09/30/24 History aerosol inhaler shortness of breath or wheez ing apixaban 5 mg (74 tabs) tablets in 5 mg PO DIRECTED 09/30/24 09/30/24 History a dose pack (Eliquis DVT-PE Treat 30D Start) lisinopril 20 mg tablet 20 mg PO DAILY 09/30/2409/06 History oxycodone 5 mg tablet 5 mg PO Q6HP PRN Moderate Pa in 09/30/24 09/30/24 History (Scale Score 5-6) levofloxacin 750 mg tablet 750 mg PO DAILY 5 days #5 t abs 10/01/24 Rx New Prescriptions to Start Prescriptions: levofloxacin Prabhjot Monae Allergies Allergy/AdvReac Type Severity Reaction Status Date / Time No Known Allergies Allergy Verified 09/29/24 14:01 Discharge Plan Disposition Patient Disposition: Hospice - Home Condition: Fair Discharge Order Discharge Orders: Discharge Order (Routine); Ordered 10/01/24 Ordered By: Prabhjot Monae Follow up Plan Follow up with: Natasha Delvalle MD [Physician, Pulmonology] - 10/27/24 11:00 am Prescriptions/Medication Reconciliation: New levofloxacin 750 mg tablet 750 mg PO DAILY 5 Days Qty: 5 0RF Continued amlodipine 5 mg tablet 5 mg PO DAILY Qty: 30 2RF albuterol sulfate 90 mcg/actuation HFA aerosol inhaler 2 puff inhalation Q4HP PRN (Reason: shortness of breath or wheezing) oxycodone 5 mg tablet 5 mg PO Q6HP PRN (Reason: Moderate Pain (Scale Score 5-6)) Eliquis DVT-PE Treat 30D Start 5 mg (74 tabs) tablets,dose pack 5 mg PO DIRECTED Rx Instructions: orally per package directions lisinopril 20 mg tablet 20 mg PO DAILY Patient Comments: TAKE 1 TABLET BY MOUTH ONCE DAILY Discontinued doxycycline hyclate 100 mg capsule 100 mg PO BID Patient Comments: TAKE 1 CAPSULE BY MOUTH TWICE DAILY FOR 10 DAYS cefdinir 300 mg capsule 300 mg PO BID Patient Comments: TAKE 1 CAPSULE BY MOUTH TWICE DAILY FOR 10 DAYS Problem Reconciliation Problems Reviewed?: Yes Patient Discharge Instructions Patient Instructions: DI for Thoracentesis, DI for Surgical Site Infection, DI for Pleural Effusion Print Language: Kiswahili Providers Primary Care Provider: Sami Zaragoza Admit Provider: Prabhjot Monae Attending Provider: Prabhjot Monae
[2024-10-01 13:14] VITALS: PULSE 77; PULSE 80
[2024-10-01 15:12] LABS: Albumin, Body Fluid 1.8 g/dL (Not Estab.); Glucose, Body Fluid 120 mg/dL (.); LD, Body Fluid 287 IU/L (.)
--- NOTE | 2024-10-01 23:36 | EXP.EVENT.NO ---
Goals of care discussion. Discussed with patient and family: Patient and Dena Harris. #Suspected metastatic lung cancer #Pulmonary embolism #Sepsis #Community-acquired pneumonia #Large loculated pleural effusion ? Presented as a direct admit from PCP due to worsening shortness of breath. ? CTA chest on 09/27/2024 revealed complex left lung mass measuring 8 x 6.6 x 6.7 cm, large associated loculated pleural effusion, in addition to other likely metastatic lesions in the spleen, mediastinum. Also revealed left upper lobe and lingula pneumonia. Additionally, also revealed filling defect in the right descending pulmonary artery. Patient was advised admission from the ED on that day but patient refused and preferred to follow-up with his PCP. However, patient had worsening shortness of breath. ? Extensive conversation with the patient today, patient wants to pursue hospice care for cancer. He does not want biopsy of his lesion. He states that his family had a very bad experience with biopsy and cancer treatment, and regardless he does not want undergo workup or treatment given significant side effects.
== END 2024-10-01 13:30 | disposition hospice, home (50) | DRG 180 ==
PROVIDERS: Internal Medicine Pulmonary Disease; Admitting Provider Student in an Organized Health Care Education/Training Program; PCP Nurse Practitioner Family; Visit Provider Student in an Organized Health Care Education/Training Program
DX: C34.92 Malignant neoplasm of unspecified part of left bronchus or lung (principal); A41.9 Sepsis, unspecified organism; I26.99 Other pulmonary embolism without acute cor pulmonale; J18.9 Pneumonia, unspecified organism; C78.89 Secondary malignant neoplasm of other digestive organs; J91.0 Malignant pleural effusion; C79.02 Secondary malignant neoplasm of left kidney and renal pelvis; C44.92 Squamous cell carcinoma of skin, unspecified; I10 Essential (primary) hypertension; H91.90 Unspecified hearing loss, unspecified ear; Z87.891 Personal history of nicotine dependence; Z79.01 Long term (current) use of anticoagulants; Z79.899 Other long term (current) drug therapy
CPT/HCPCS: 32555; 36415; 71045; 80053; 80061; 82042; 82945; 83615; 83735; 84145; 84157; 84484; 85025; 85378; 85651; 85730; 86140; 87040; 87070; 87205; 87641; 89051; 93306; 94640; 94761; J1644; J2543; J3375